=== PATIENT | female | born 1975 | race Caucasian/White ===

== ENCOUNTER 2025-01-10 16:03 | Observation (INO) | payer BC, SELFPAY ==
[2025-01-10] VITALS (18 sets, daily range): BP systolic 103–127; BP diastolic 51–73; PULSE 66–91; RESP 0–30; TEMP 36.7–37.5; O2SAT 93–99
--- NOTE | 2025-01-10 16:15 | DI.CT.S_ITS ---
PROCEDURE: CT HEAD/BRAIN WO CON INDICATIONS: AMS TECHNIQUE: Noncontrast 4.5 mm thick angled axial sections acquired from the foramen magnum to the vertex, with coronal and sagittal reformats. For radiation dose reduction, the following was used: automated exposure control, adjustment of mA and/or kV according to patient size. COMPARISON: None. FINDINGS: Image quality: Diagnostic. CSF spaces: Basal cisterns are patent. No extra-axial fluid collections. Ventricles are normal in size and shape. Brain: No midline shift. No intracranial masses or hemorrhage. Dailey-white matter interface is normal. Skull and face: Calvarium and visualized facial bones are intact, without suspicious lesions. Sinuses: Visualized sinuses and mastoids are clear. IMPRESSION: No acute intracranial abnormality. Dictated by: Gregory Garcia M.D. on 01/10/2025 at 16:48 Approved by: Gregory Garcia M.D. on 01/10/2025 at 16:49
--- NOTE | 2025-01-10 16:16 | DI.RAD.S_ITS ---
PROCEDURE: XR CHEST 1V INDICATIONS: chest pain TECHNIQUE: One view of the chest was acquired. COMPARISON: None. FINDINGS: Surgical changes and devices: None. Lungs and pleura: Lungs are clear. No pleural effusions or pneumothorax. Mediastinum: Mediastinal contours appear normal. Heart size is normal. Bones and chest wall: No suspicious bony lesions. Overlying soft tissues appear unremarkable. IMPRESSION: No acute pulmonary process. Dictated by: Brigette Pedro M.D. on 01/10/2025 at 16:49 Approved by: Brigette Pedro M.D. on 01/10/2025 at 16:49
--- NOTE | 2025-01-10 16:19 | EKG_ITS ---
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
[2025-01-10 16:29] LABS: Add Manual Diff / Slide Review NO; Basophils Absolute Auto 0 /uL (0-100); Basophils Percent Auto 0.4 % (0-2); Eosinophils Absolute Auto 200 /uL (0-450); Eosinophils Percent Auto 4.7 % (2-4); Hematocrit 48.2 % (36-46); Lymphocytes Absolute Auto 1100 /uL (1100-4500); Lymphocytes Percent Auto 22.7 % (25-40); Mean Corpuscular HGB Conc 33.2 % (30-36); Mean Corpuscular Hemoglobin 30.5 PG (26-34); Mean Corpuscular Volume 91.8 fL (80-100); Monocytes Absolute Auto 300 /uL (0-900); Monocytes Percent Auto 7.2 % (3-14); Neutrophils Absolute Auto 3100 /uL (1500-7000); Platelet Count 228 X10^3/uL (150-400); Red Blood Cell Count 5.25 X10^6/uL (4.0-5.2); Red Cell Distribution Width 14.4 % (11.6-14.8); White Blood Cell Count 4.7 X10^3/uL (4.5-11.0)
[2025-01-10 16:41] LABS: INR 0.9 (0.9-1.3); Prothrombin Time 10.5 SECONDS (9.4-12.5)
--- NOTE | 2025-01-10 16:41 | PC.NURSE ---
Pt arrived to ED via private vehicle with altered mental status and decreased LOC. 3 person assist from wheelchair to bed and pt responded verbally to sternal rub. Pt having intermittent episodes of altered level of consciousness. Pt able to answer questions appropriately. States that she has UTI and took macrobid rx that she had leftover from previous UTI. Pt's at bedside during triage and states that pt is prone to UTI but has no other significant medical hx.
[2025-01-10 16:44] LABS: PTT Partial Thromboplastin Tim 33 SECONDS (25.1-36.5)
[2025-01-10 16:47] LABS: Appearance Urine UA CLEAR; Bilirubin Urine UA NEGATIVE (NEGATIVE); Color Urine UA YELLOW; Glucose Urine UA NEGATIVE (Negative); Ketones Urine UA TRACE (NEGATIVE); Leukocyte Esterase Urine UA NEGATIVE (NEGATIVE); Nitrite Urine UA NEGATIVE (Negative); Occult Blood Urine UA NEGATIVE (Negative); Protein Urine UA NEGATIVE (Negative); Urobilinogen Urine UA 0.2 E.U./dL (0.2)
[2025-01-10 16:47] LABS: Alanine Aminotransferase 21 IU/L (<35); Albumin 4.6 g/dL (3.5-5.0); Albumin Globulin Ratio 1.5 (1.0-2.8); Alkaline Phosphatase 49 U/L (38-126); Aspartate Aminotransferase 26 IU/L (14-36); BUN Creatinine Ratio 10.5 (6-22); Bilirubin Total 0.4 mg/dL (0.2-1.3); Blood Urea Nitrogen 9 mg/dL (7-17); Calcium 9.8 mg/dL (8.4-10.2); Carbon Dioxide 24 mmol/L (22-32); Chloride 104 mmol/L (98-107); Creatine Kinase 39 U/L (30-135); Estimated Glomerular Filt Rate > 60 mL/min (>60); Glucose 81 mg/dL (70-100); HEMOLYSIS < 15 (0-50); Lipase 67 U/L (23-300); Magnesium 1.9 mg/dL (1.6-2.3); Potassium 4.1 mmol/L (3.4-5.1); Sodium 136 mmol/L (137-145); Total Protein 7.6 g/dL (6.3-8.2)
[2025-01-10 16:50] LABS: UR Morphine/Opiate cutoff 300 Negative (Negative); Ur Creatinine Normal (Normal); Ur Specific Gravity Normal (Normal); Urine Amphetamines Negative (Negative); Urine Barbiturates Negative (Negative); Urine Benzodiazepines Negative (Negative); Urine Cocaine Negative (Negative); Urine MDMA Negative (Negative); Urine Methadone Negative (Negative); Urine Methamphetamines Negative (Negative); Urine Oxycodone Negative (Negative); Urine Phencyclidine Negative (Negative); Urine Tetrahydrocannabinol Negative (Negative); Urine Tricyclic Antidepressant Negative (Negative); Urine pH Normal (Normal)
[2025-01-10 16:59] LABS: Ethanol (ETOH) < 10 mg/dL
[2025-01-10 16:59] LABS: NT-proBNP (BNP-Adult 18+) 181 pg/mL (<125); Troponin I < 0.012 ng/mL (0.01-0.034)
[2025-01-10 17:03] LABS: Bacteria Urine Many (>30); Culture Indicated Urine Cult Not Indicated; RBC Urine 0-1/HPF (0-5/HPF); Squamous Epithelial Cell Urine 10-30 /HPF (0-5/HPF); Urine Volume 10mL (spun); WBC Urine 0-1/HPF (0-5/HPF)
--- NOTE | 2025-01-10 18:07 | PC.NURSE ---
Addendum entered by Ludy Kaur R.N. 01/10/25 19:17: Rn to room to give meds. Pt asking her when he got home. Pt is a&Ox3 at this time and intermittently confused. Addendum entered by Ludy Kaur R.N. 01/10/25 18:30: Remains a&ox4. Original Note: Pt a&ox4. C/o headache and jaw pain.
--- NOTE | 2025-01-10 18:40 | ED.AMS ---
HPI - Altered Mental Status <Shonda Godfrey DO - Last Filed: 01/11/25 21:07> General Chief Complaint: Altered Mental Status Stated Complaint: LOC, UTI Time Seen by Provider: 01/10/25 18:07 History of Present Illness HPI narrative: Patient 49-year-old female history of thyroid, allergies presenting today with altered mental status. Has been is at bedside reports that he was away for the last 4 days on a trip. She called him 4 days ago and said that she might have a UTI and I. She does get UTIs. She is also complaining of a pretty severe headache. She needs to be carried in from the car diffusely weak all over. She was afebrile, can not remember when he came home can not remember how she got here. Overall diffusely weak and confused. Adamantly denies any drug use or alcohol use. Related Data Home Medications Medication Instructions Recorded Confirmed Semaglutide/B12 0.34 ml SUBCUT WEEKLY 01/11/25 01/11/25 allergen 1 tab sublingual DAILY 01/11/25 01/11/25 xt,mite,D.farinae-D.pteronyssinus 12 SQ-HDM sublingual tablet (Odactra) levothyroxine 88 mcg tablet 88 mcg PO DAILY 01/11/25 01/11/25 liothyronine 5 mcg tablet 5 mcg PO DAILY 01/11/25 01/11/25 naltrexone 1.5 mg capsule 2.5 mg PO BEDTIME 01/11/25 01/11/25 progesterone micronized 200 mg 200 mg PO BEDTIME 01/11/25 01/11/25 capsule Allergies Allergy/AdvReac Type Severity Reaction Status Date / Time ciprofloxacin [From Cipro] Allergy Unknown Verified 01/10/25 17:47 lidocaine Allergy Unknown Verified 01/10/25 17:47 morphine Allergy Unknown Verified 01/10/25 17:47 pregabalin [From Lyrica] Allergy Unknown Verified 01/10/25 17:47 Patient History <Shonda Godfrey DO - Last Filed: 01/11/25 21:07> Medical History (Updated 01/11/25 @ 17:05 by Juan Figueroa DO) Hypothyroidism Social History household members: spouse Smoking Status: Never smoker alcohol intake: never Smoking Status: Unknown if ever smoked Exam <Shonda Godfrey DO - Last Filed: 01/11/25 21:07> Initial Vital Signs Initial Vital Signs: Vital Signs Temperature 98.3 F 01/10/25 16:10 Pulse Rate 69 01/10/25 16:10 Respiratory Rate 18 01/10/25 16:10 Blood Pressure 127/73 01/10/25 16:10 Pulse Oximetry 98 01/10/25 16:10 Oxygen Delivery Method Room Air 01/10/25 16:10 GENERAL: Sleepy but arousable HEENT: Head atraumatic,EOMI, pupils reactive, face symmetric, [moist] mucous membranes NECK CARDIOVASCULAR: Regular rate and rhythm without murmurs, rubs or gallops. RESPIRATORY: Breath sounds equal bilaterally, no wheezes rales or rhonchi. ABDOMEN: Soft, nontender. Normoactive bowel sounds all 4 quadrants. No guarding or rebound. EXTREMITIES: Normal range of motion, no clubbing or edema. Neurovascularly intact NEUROLOGICAL: Alert and oriented x2. No facial droop no slurring of speech diffusely weak in all extremities all extremities drift to gurney SKIN: Warm, dry, no laceration, no petechiae, no rashes or lesions. <Benitez Hendrix MD - Last Filed: 01/11/25 20:37> Initial Vital Signs Initial Vital Signs: Vital Signs Temperature 98.3 F 01/10/25 16:10 Pulse Rate 69 01/10/25 16:10 Respiratory Rate 18 01/10/25 16:10 Blood Pressure 127/73 01/10/25 16:10 Pulse Oximetry 98 01/10/25 16:10 Oxygen Delivery Method Room Air 01/10/25 16:10 Procedures <Shonda Godfrey DO - Last Filed: 01/11/25 21:07> Lumbar Puncture Patient Position: right lateral decubitus (and up right) Skin Prep: 0.5% Chlorhexidine/Alcohol Local Anesthetic: lidocaine 1% Amount of anesthesia used (mL): 15 Spinal Needle Gauge: 22G Interspace Used: L4-L5 Complications: Need to have other Practitioner Attempt and unable to obtain CSF Course <Shonda Godfrey DO - Last Filed: 01/11/25 21:07> Orders Ordered: Acetaminophen (Acetaminophen 325 Mg Tablet) 650 mg PO Q6H PRN PRN Reason: Fever/Mild Pain (1-3) Enoxaparin Sodium (Enoxaparin 40 Mg/0.4 Ml Syringe) 40 mg SUBCUT DAILY COUNTS INCLUDE 234 BEDS AT THE [facility] Hydromorphone HCl (Hydromorphone 1 Mg Inj) 1 mg IV Q4H PRN PRN Reason: Pain, Moderate (4-6) Last Admin: 01/11/25 19:04 Dose: 1 mg Documented By: LDV Sodium Chloride (Normal Saline 0.9%) 1,000 mls @ 100 mls/hr IV CONT FANTA Last Admin: 01/11/25 12:00 Dose: 100 mls/hr Documented By: LDV Ceftriaxone Sodium 1,000 mg/ (Sodium Chloride) 100 mls @ 200 mls/hr IV Q24H COUNTS INCLUDE 234 BEDS AT THE [facility] Stop: 01/16/25 16:59 Last Admin: 01/11/25 18:01 Dose: 200 mls/hr Documented By: SG Azithromycin 500 mg/ Dextrose 250 mls @ 250 mls/hr IV Q24H FANTA Stop: 01/14/25 16:59 Last Admin: 01/11/25 18:45 Dose: 250 mls/hr Documented By: LDV Naloxone HCl (Naloxone 0.4 Mg/Ml Vial) 0.2 mg IV Q2MIN PRN PRN Reason: Opiate Reversal Stored In Pharmacy 0 each PO PRN PRN PRN Reason: . Discontinued Medications Hydromorphone HCl (Hydromorphone 1 Mg Inj) 1 mg IV NOW ONE Stop: 01/11/25 03:07 Last Admin: 01/11/25 03:12 Dose: 1 mg Documented By: ELIO Hydromorphone HCl (Hydromorphone 0.5 Mg Inj) 0.5 mg IV NOW ONE Stop: 01/11/25 05:33 Last Admin: 01/11/25 06:03 Dose: 0.5 mg Documented By: ELIO Hydromorphone HCl (Hydromorphone 0.5 Mg Inj) 0.5 mg IV NOW ONE Stop: 01/11/25 08:26 Last Admin: 01/11/25 08:49 Dose: 0.5 mg Documented By: KACI Sodium Chloride (Normal Saline 0.9%) 1,000 mls @ 1,000 mls/hr IV BOLUS ONE Stop: 01/10/25 19:50 Last Infusion: 01/10/25 20:00 Dose: Infused Documented By: Admin: 01/10/25 19:00 Dose: 1,000 mls/hr Documented By: CHELO Sodium Chloride (Normal Saline 0.9%) 1,000 mls @ 1,000 mls/hr IV BOLUS ONE Stop: 01/11/25 06:31 Last Infusion: 01/11/25 08:23 Dose: Infused Documented By: Admin: 01/11/25 06:02 Dose: 1,000 mls/hr Documented By: ELIO Acetaminophen (Ofirmev) 1,000 mg in 100 mls @ 400 mls/hr IV NOW ONE Stop: 01/11/25 05:46 Last Infusion: 01/11/25 06:42 Dose: Infused Documented By: Admin: 01/11/25 06:03 Dose: 400 mls/hr Documented By: ELIO Ketorolac Tromethamine (Ketorolac 30 Mg/Ml Vial) 15 mg IV NOW ONE Stop: 01/10/25 18:52 Last Admin: 01/10/25 19:00 Dose: 15 mg Documented By: CHELO Ondansetron HCl (Ondansetron 4 Mg/2 Ml Inj) 4 mg IV NOW ONE Stop: 01/11/25 04:00 Last Admin: 01/11/25 04:04 Dose: 4 mg Documented By: LORETTA Ondansetron HCl (Ondansetron 4 Mg/2 Ml Inj) 4 mg IV NOW ONE Stop: 01/11/25 10:17 Last Admin: 01/11/25 10:25 Dose: 4 mg Documented By: CL Sumatriptan Succinate (Sumatriptan 6 Mg/0.5 Ml Vial) 6 mg SUBCUT NOW ONE Stop: 01/11/25 16:50 Last Admin: 01/11/25 17:55 Dose: 6 mg Documented By: JOSE Vital Signs Vital signs: Vital Signs - 8 hr 01/11/25 03:30 01/11/25 04:00 01/11/25 04:30 Temperature 99.0 F Pulse Rate 89 83 70 Respiratory Rate 22 13 17 Blood Pressure Pulse Oximetry 96 98 93 01/11/25 04:54 01/11/25 05:02 01/11/25 05:02 Temperature Pulse Rate 72 65 Respiratory Rate 23 21 Blood Pressure 121/66 Pulse Oximetry 92 93 01/11/25 05:30 01/11/25 05:30 01/11/25 06:00 Temperature Pulse Rate 74 68 Respiratory Rate 16 17 Blood Pressure 107/67 Pulse Oximetry 97 94 01/11/25 06:00 01/11/25 07:00 01/11/25 07:00 Temperature Pulse Rate 78 Respiratory Rate 17 Blood Pressure 93/53 L 99/52 L Pulse Oximetry 95 01/11/25 07:30 01/11/25 07:30 01/11/25 08:00 Temperature Pulse Rate 79 71 Respiratory Rate 17 14 Blood Pressure 100/59 L Pulse Oximetry 94 95 01/11/25 08:00 01/11/25 08:30 01/11/25 08:30 Temperature Pulse Rate 81 Respiratory Rate 19 Blood Pressure 102/58 L 107/62 Pulse Oximetry 91 01/11/25 09:00 01/11/25 09:16 01/11/25 09:30 Temperature Pulse Rate 70 95 H Respiratory Rate 20 13 Blood Pressure 102/61 Pulse Oximetry 98 97 01/11/25 09:30 01/11/25 09:45 01/11/25 09:45 Temperature Pulse Rate 78 72 Respiratory Rate 16 17 Blood Pressure 104/57 L Pulse Oximetry 93 92 01/11/25 10:00 01/11/25 10:00 Temperature Pulse Rate 69 Respiratory Rate 17 Blood Pressure 103/56 L Pulse Oximetry 93 <Benitez Hendrix MD - Last Filed: 01/11/25 20:37> Orders Ordered: Acetaminophen (Acetaminophen 325 Mg Tablet) 650 mg PO Q6H PRN PRN Reason: Fever/Mild Pain (1-3) Enoxaparin Sodium (Enoxaparin 40 Mg/0.4 Ml Syringe) 40 mg SUBCUT DAILY COUNTS INCLUDE 234 BEDS AT THE [facility] Hydromorphone HCl (Hydromorphone 1 Mg Inj) 1 mg IV Q4H PRN PRN Reason: Pain, Moderate (4-6) Last Admin: 01/11/25 19:04 Dose: 1 mg Documented By: LDV Sodium Chloride (Normal Saline 0.9%) 1,000 mls @ 100 mls/hr IV CONT FANTA Last Admin: 01/11/25 12:00 Dose: 100 mls/hr Documented By: LDV Ceftriaxone Sodium 1,000 mg/ (Sodium Chloride) 100 mls @ 200 mls/hr IV Q24H FANTA Stop: 01/16/25 16:59 Last Admin: 01/11/25 18:01 Dose: 200 mls/hr Documented By: JOSE Azithromycin 500 mg/ Dextrose 250 mls @ 250 mls/hr IV Q24H FANTA Stop: 01/14/25 16:59 Last Admin: 01/11/25 18:45 Dose: 250 mls/hr Documented By: LDV Naloxone HCl (Naloxone 0.4 Mg/Ml Vial) 0.2 mg IV Q2MIN PRN PRN Reason: Opiate Reversal Stored In Pharmacy 0 each PO PRN PRN PRN Reason: . Discontinued Medications Hydromorphone HCl (Hydromorphone 1 Mg Inj) 1 mg IV NOW ONE Stop: 01/11/25 03:07 Last Admin: 01/11/25 03:12 Dose: 1 mg Documented By: ELIO Hydromorphone HCl (Hydromorphone 0.5 Mg Inj) 0.5 mg IV NOW ONE Stop: 01/11/25 05:33 Last Admin: 01/11/25 06:03 Dose: 0.5 mg Documented By: ELIO Hydromorphone HCl (Hydromorphone 0.5 Mg Inj) 0.5 mg IV NOW ONE Stop: 01/11/25 08:26 Last Admin: 01/11/25 08:49 Dose: 0.5 mg Documented By: KACI Sodium Chloride (Normal Saline 0.9%) 1,000 mls @ 1,000 mls/hr IV BOLUS ONE Stop: 01/10/25 19:50 Last Infusion: 01/10/25 20:00 Dose: Infused Documented By: Admin: 01/10/25 19:00 Dose: 1,000 mls/hr Documented By: CHELO Sodium Chloride (Normal Saline 0.9%) 1,000 mls @ 1,000 mls/hr IV BOLUS ONE Stop: 01/11/25 06:31 Last Infusion: 01/11/25 08:23 Dose: Infused Documented By: Admin: 01/11/25 06:02 Dose: 1,000 mls/hr Documented By: ELIO Acetaminophen (Ofirmev) 1,000 mg in 100 mls @ 400 mls/hr IV NOW ONE Stop: 01/11/25 05:46 Last Infusion: 01/11/25 06:42 Dose: Infused Documented By: Admin: 01/11/25 06:03 Dose: 400 mls/hr Documented By: ELIO Ketorolac Tromethamine (Ketorolac 30 Mg/Ml Vial) 15 mg IV NOW ONE Stop: 01/10/25 18:52 Last Admin: 01/10/25 19:00 Dose: 15 mg Documented By: CHELO Ondansetron HCl (Ondansetron 4 Mg/2 Ml Inj) 4 mg IV NOW ONE Stop: 01/11/25 04:00 Last Admin: 01/11/25 04:04 Dose: 4 mg Documented By: LORETTA Ondansetron HCl (Ondansetron 4 Mg/2 Ml Inj) 4 mg IV NOW ONE Stop: 01/11/25 10:17 Last Admin: 01/11/25 10:25 Dose: 4 mg Documented By: CL Sumatriptan Succinate (Sumatriptan 6 Mg/0.5 Ml Vial) 6 mg SUBCUT NOW ONE Stop: 01/11/25 16:50 Last Admin: 01/11/25 17:55 Dose: 6 mg Documented By: SG Vital Signs Vital signs: Vital Signs - 8 hr 01/11/25 03:30 01/11/25 04:00 01/11/25 04:30 Temperature 99.0 F Pulse Rate 89 83 70 Respiratory Rate 22 13 17 Blood Pressure Pulse Oximetry 96 98 93 01/11/25 04:54 01/11/25 05:02 01/11/25 05:02 Temperature Pulse Rate 72 65 Respiratory Rate 23 21 Blood Pressure 121/66 Pulse Oximetry 92 93 01/11/25 05:30 01/11/25 05:30 01/11/25 06:00 Temperature Pulse Rate 74 68 Respiratory Rate 16 17 Blood Pressure 107/67 Pulse Oximetry 97 94 01/11/25 06:00 01/11/25 07:00 01/11/25 07:00 Temperature Pulse Rate 78 Respiratory Rate 17 Blood Pressure 93/53 L 99/52 L Pulse Oximetry 95 01/11/25 07:30 01/11/25 07:30 01/11/25 08:00 Temperature Pulse Rate 79 71 Respiratory Rate 17 14 Blood Pressure 100/59 L Pulse Oximetry 94 95 01/11/25 08:00 01/11/25 08:30 01/11/25 08:30 Temperature Pulse Rate 81 Respiratory Rate 19 Blood Pressure 102/58 L 107/62 Pulse Oximetry 91 01/11/25 09:00 01/11/25 09:16 01/11/25 09:30 Temperature Pulse Rate 70 95 H Respiratory Rate 20 13 Blood Pressure 102/61 Pulse Oximetry 98 97 01/11/25 09:30 01/11/25 09:45 01/11/25 09:45 Temperature Pulse Rate 78 72 Respiratory Rate 16 17 Blood Pressure 104/57 L Pulse Oximetry 93 92 01/11/25 10:00 01/11/25 10:00 Temperature Pulse Rate 69 Respiratory Rate 17 Blood Pressure 103/56 L Pulse Oximetry 93 MDM - Altered Mental Status <Shonda Godfrey, DO - Last Filed: 01/11/25 21:07> Lab Data 01/11/25 11:45 01/11/25 11:45 Labs: Lab Results 01/10/25 01/10/25 01/10/25 Range/Units 16:15 16:31 16:31 WBC 4.7 (4.5-11.0) X10^3/uL RBC 5.25 H (4.0-5.2) X10^6/uL Hgb 16.0 (12.0-16.0) g/dL Hct 48.2 H (36-46) % MCV 91.8 (80-100) fL MCH 30.5 (26-34) PG MCHC 33.2 (30-36) % RDW 14.4 (11.6-14.8) % Plt Count 228 (150-400) X10^3/uL Neut % (Auto) 65.0 (50-75) % Lymph % (Auto) 22.7 L (25-40) % [place] % (Auto) 7.2 (3-14) % Eos % (Auto) 4.7 H (2-4) % Baso % (Auto) 0.4 (0-2) % Neut # (Auto) 3100 (0116-6515) /uL Lymph # (Auto) 1100 (9641-1630) /uL [place] # (Auto) 300 (0-900) /uL Eos # (Auto) 200 (0-450) /uL Baso # (Auto) 0 (0-100) /uL PT 10.5 (9.4-12.5) SECONDS INR 0.9 (0.9-1.3) APTT 33 (25.1-36.5) SECONDS Sodium 136 L (137-145) mmol/L Potassium 4.1 (3.4-5.1) mmol/L Chloride 104 (98-107) mmol/L Carbon Dioxide 24 (22-32) mmol/L BUN 9 (7-17) mg/dL Creatinine 0.86 (0.52-1.04) mg/dL Estimated GFR > 60 (>60) mL/min BUN/Creatinine Ratio 10.5 (6-22) Glucose 81 (70-100) mg/dL Lactate 1.0 (0.7-2.1) mmol/L Calcium 9.8 (8.4-10.2) mg/dL Magnesium 1.9 (1.6-2.3) mg/dL Total Bilirubin 0.4 (0.2-1.3) mg/dL AST 26 (14-36) IU/L ALT 21 (<35) IU/L Alkaline Phosphatase 49 (38-126) U/L Total Creatine Kinase 39 (30-135) U/L Troponin I < 0.012 (0.01-0.034) ng/mL NT-Pro-B Natriuret Pep 181 H (<125) pg/mL Total Protein 7.6 (6.3-8.2) g/dL Albumin 4.6 (3.5-5.0) g/dL Globulin 3.0 (1.7-4.1) g/dL Albumin/Globulin Ratio 1.5 (1.0-2.8) Lipase 67 (23-300) U/L TSH 1.03 (0.47-4.68) uIU/mL Urine Color Yellow Urine Appearance Clear Urine pH 7.0 Normal (4.5-8.0) Ur Specific [place] 1.010 (1.000-1.035) Urine Protein Negative (Negative) Urine Glucose (UA) Negative (Negative) g/dL Urine Ketones Trace H (NEGATIVE) Urine Occult Blood Negative (Negative) Urine Nitrate Negative (Negative) Urine Bilirubin Negative (NEGATIVE) Urine Urobilinogen 0.2 (0.2) E.U./dL Ur Leukocyte Esterase Negative (NEGATIVE) Urine RBC 0-1/hpf (0-5/HPF) Urine WBC 0-1/hpf (0-5/HPF) Ur Squamous Epith Cells 10-30 /hpf H (0-5/HPF) Urine Bacteria Many (>30) H (None) Ur Culture Indicated? Cult not indicated Vol Urine Centrifuged 10ml (spun) CSF Tube Number CSF Volume CSF Appearance (Clear) CSF Color (Colorless) CSF WBC (0-5) MONO/uL CSF RBC RBC /uL CSF Mononuclear WBCs CSF Polynuclear WBCs CSF Glucose (40-70) mg/dL CSF Total Protein (12-60) mg/dL CSF C.neoform/gat PCR (Not Detect) CSF CMV DNA (PCR) (Not Detect) CSF Enterovirus (PCR) (Not Detect) CSF E. coli (PCR) (Not Detect) CSF H. influenzae (PCR) (Not Detect) CSF HSV I (PCR) (Not Detect) CSF HSV II (PCR) (Not Detect) CSF HHV 6 (PCR) (Not Detect) CSF L.monocytogenes PCR (Not Detect) CSF N. meningitidis PCR (Not Detect) CSF Parechovirus (PCR) (Not Detect) CSF S. agalactiae (PCR) (Not Detect) CSF S. pneumoniae (PCR) (Not Detect) CSF VZV (PCR) (Not Detecte) U Opiates 300ng/mL cut Negative (Negative) Ur Oxycodone Screen Negative (Negative) Urine Methadone Screen Negative (Negative) Ur Barbiturates Screen Negative (Negative) U Tricyclic Antidepress Negative (Negative) Ur Phencyclidine Scrn Negative (Negative) Ur Amphetamines Screen Negative (Negative) U Methamphetamines Scrn Negative (Negative) Ur MDMA Scrn (Ecstasy) Negative (Negative) U Benzodiazepines Scrn Negative (Negative) Urine Cocaine Screen Negative (Negative) U Marijuana (THC) Screen Negative (Negative) Urine Specific [place] Normal (Normal) Ethyl Alcohol ( - 10) mg/dL Ur Creatinine Normal (Normal) SARS-CoV-2 (PCR) (Negative) Influenza A (RT-PCR) (NEGATIVE) Influenza B (RT-PCR) (NEGATIVE) RSV (PCR) (Negative) 01/10/25 01/10/25 01/11/25 Range/Units 16:32 18:13 03:36 WBC (4.5-11.0) X10^3/uL RBC (4.0-5.2) X10^6/uL Hgb (12.0-16.0) g/dL Hct (36-46) % MCV (80-100) fL MCH (26-34) PG MCHC (30-36) % RDW (11.6-14.8) % Plt Count (150-400) X10^3/uL Neut % (Auto) (50-75) % Lymph % (Auto) (25-40) % [place] % (Auto) (3-14) % Eos % (Auto) (2-4) % Baso % (Auto) (0-2) % Neut # (Auto) (7576-7575) /uL Lymph # (Auto) (0515-3240) /uL [place] # (Auto) (0-900) /uL Eos # (Auto) (0-450) /uL Baso # (Auto) (0-100) /uL PT (9.4-12.5) SECONDS INR (0.9-1.3) APTT (25.1-36.5) SECONDS Sodium (137-145) mmol/L Potassium (3.4-5.1) mmol/L Chloride (98-107) mmol/L Carbon Dioxide (22-32) mmol/L BUN (7-17) mg/dL Creatinine (0.52-1.04) mg/dL Estimated GFR (>60) mL/min BUN/Creatinine Ratio (6-22) Glucose (70-100) mg/dL Lactate (0.7-2.1) mmol/L Calcium (8.4-10.2) mg/dL Magnesium (1.6-2.3) mg/dL Total Bilirubin (0.2-1.3) mg/dL AST (14-36) IU/L ALT (<35) IU/L Alkaline Phosphatase (38-126) U/L Total Creatine Kinase (30-135) U/L Troponin I (0.01-0.034) ng/mL NT-Pro-B Natriuret Pep (<125) pg/mL Total Protein (6.3-8.2) g/dL Albumin (3.5-5.0) g/dL Globulin (1.7-4.1) g/dL Albumin/Globulin Ratio (1.0-2.8) Lipase (23-300) U/L TSH (0.47-4.68) uIU/mL Urine Color Yellow Urine Appearance Clear Urine pH 6.0 (4.5-8.0) Ur Specific [place] 1.010 (1.000-1.035) Urine Protein Negative (Negative) Urine Glucose (UA) Negative (Negative) g/dL Urine Ketones 1+ H (NEGATIVE) Urine Occult Blood Negative (Negative) Urine Nitrate Negative (Negative) Urine Bilirubin Negative (NEGATIVE) Urine Urobilinogen 0.2 (0.2) E.U./dL Ur Leukocyte Esterase Negative (NEGATIVE) Urine RBC None seen (0-5/HPF) Urine WBC None seen (0-5/HPF) Ur Squamous Epith Cells None seen D (0-5/HPF) Urine Bacteria None seen (None) Ur Culture Indicated? Cult not indicated Vol Urine Centrifuged 10ml (spun) CSF Tube Number CSF Volume CSF Appearance (Clear) CSF Color (Colorless) CSF WBC (0-5) MONO/uL CSF RBC RBC /uL CSF Mononuclear WBCs CSF Polynuclear WBCs CSF Glucose (40-70) mg/dL CSF Total Protein (12-60) mg/dL CSF C.neoform/gat PCR (Not Detect) CSF CMV DNA (PCR) (Not Detect) CSF Enterovirus (PCR) (Not Detect) CSF E. coli (PCR) (Not Detect) CSF H. influenzae (PCR) (Not Detect) CSF HSV I (PCR) (Not Detect) CSF HSV II (PCR) (Not Detect) CSF HHV 6 (PCR) (Not Detect) CSF L.monocytogenes PCR (Not Detect) CSF N. meningitidis PCR (Not Detect) CSF Parechovirus (PCR) (Not Detect) CSF S. agalactiae (PCR) (Not Detect) CSF S. pneumoniae (PCR) (Not Detect) CSF VZV (PCR) (Not Detecte) U Opiates 300ng/mL cut (Negative) Ur Oxycodone Screen (Negative) Urine Methadone Screen (Negative) Ur Barbiturates Screen (Negative) U Tricyclic Antidepress (Negative) Ur Phencyclidine Scrn (Negative) Ur Amphetamines Screen (Negative) U Methamphetamines Scrn (Negative) Ur MDMA Scrn (Ecstasy) (Negative) U Benzodiazepines Scrn (Negative) Urine Cocaine Screen (Negative) U Marijuana (THC) Screen (Negative) Urine Specific [place] (Normal) Ethyl Alcohol < 10 ( - 10) mg/dL Ur Creatinine (Normal) SARS-CoV-2 (PCR) Negative (Negative) Influenza A (RT-PCR) Flu a negative (NEGATIVE) Influenza B (RT-PCR) Flu b negative (NEGATIVE) RSV (PCR) Negative (Negative) 01/11/25 Range/Units 09:15 WBC (4.5-11.0) X10^3/uL RBC (4.0-5.2) X10^6/uL Hgb (12.0-16.0) g/dL Hct (36-46) % MCV (80-100) fL MCH (26-34) PG MCHC (30-36) % RDW (11.6-14.8) % Plt Count (150-400) X10^3/uL Neut % (Auto) (50-75) % Lymph % (Auto) (25-40) % [place] % (Auto) (3-14) % Eos % (Auto) (2-4) % Baso % (Auto) (0-2) % Neut # (Auto) (6315-3469) /uL Lymph # (Auto) (6277-9466) /uL [place] # (Auto) (0-900) /uL Eos # (Auto) (0-450) /uL Baso # (Auto) (0-100) /uL PT (9.4-12.5) SECONDS INR (0.9-1.3) APTT (25.1-36.5) SECONDS Sodium (137-145) mmol/L Potassium (3.4-5.1) mmol/L Chloride (98-107) mmol/L Carbon Dioxide (22-32) mmol/L BUN (7-17) mg/dL Creatinine (0.52-1.04) mg/dL Estimated GFR (>60) mL/min BUN/Creatinine Ratio (6-22) Glucose (70-100) mg/dL Lactate (0.7-2.1) mmol/L Calcium (8.4-10.2) mg/dL Magnesium (1.6-2.3) mg/dL Total Bilirubin (0.2-1.3) mg/dL AST (14-36) IU/L ALT (<35) IU/L Alkaline Phosphatase (38-126) U/L Total Creatine Kinase (30-135) U/L Troponin I (0.01-0.034) ng/mL NT-Pro-B Natriuret Pep (<125) pg/mL Total Protein (6.3-8.2) g/dL Albumin (3.5-5.0) g/dL Globulin (1.7-4.1) g/dL Albumin/Globulin Ratio (1.0-2.8) Lipase (23-300) U/L TSH (0.47-4.68) uIU/mL Urine Color Urine Appearance Urine pH (4.5-8.0) Ur Specific [place] (1.000-1.035) Urine Protein (Negative) Urine Glucose (UA) (Negative) g/dL Urine Ketones (NEGATIVE) Urine Occult Blood (Negative) Urine Nitrate (Negative) Urine Bilirubin (NEGATIVE) Urine Urobilinogen (0.2) E.U./dL Ur Leukocyte Esterase (NEGATIVE) Urine RBC (0-5/HPF) Urine WBC (0-5/HPF) Ur Squamous Epith Cells (0-5/HPF) Urine Bacteria (None) Ur Culture Indicated? Vol Urine Centrifuged CSF Tube Number 3 CSF Volume 2.0 ml CSF Appearance Clear (Clear) CSF Color Colorless (Colorless) CSF WBC 1.7 (0-5) MONO/uL CSF RBC 3 RBC /uL CSF Mononuclear WBCs Not Reportable CSF Polynuclear WBCs Not Reportable CSF Glucose 44 (40-70) mg/dL CSF Total Protein 30 (12-60) mg/dL CSF C.neoform/gat PCR Not detected (Not Detect) CSF CMV DNA (PCR) Not detected (Not Detect) CSF Enterovirus (PCR) Not detected (Not Detect) CSF E. coli (PCR) Not detected (Not Detect) CSF H. influenzae (PCR) Not detected (Not Detect) CSF HSV I (PCR) Not detected (Not Detect) CSF HSV II (PCR) Not detected (Not Detect) CSF HHV 6 (PCR) Not detected (Not Detect) CSF L.monocytogenes PCR Not detected (Not Detect) CSF N. meningitidis PCR Not detected (Not Detect) CSF Parechovirus (PCR) Not detected (Not Detect) CSF S. agalactiae (PCR) Not detected (Not Detect) CSF S. pneumoniae (PCR) Not detected (Not Detect) CSF VZV (PCR) Not detected (Not Detecte) U Opiates 300ng/mL cut (Negative) Ur Oxycodone Screen (Negative) Urine Methadone Screen (Negative) Ur Barbiturates Screen (Negative) U Tricyclic Antidepress (Negative) Ur Phencyclidine Scrn (Negative) Ur Amphetamines Screen (Negative) U Methamphetamines Scrn (Negative) Ur MDMA Scrn (Ecstasy) (Negative) U Benzodiazepines Scrn (Negative) Urine Cocaine Screen (Negative) U Marijuana (THC) Screen (Negative) Urine Specific [place] (Normal) Ethyl Alcohol ( - 10) mg/dL Ur Creatinine (Normal) SARS-CoV-2 (PCR) (Negative) Influenza A (RT-PCR) (NEGATIVE) Influenza B (RT-PCR) (NEGATIVE) RSV (PCR) (Negative) Point of Care Testing Glucose POC [address] scan - head: Radiologist's Impression: PROCEDURE: CT HEAD/BRAIN WO CON INDICATIONS: AMS TECHNIQUE: Noncontrast 4.5 mm thick angled axial sections acquired from the foramen magnum to the vertex, with coronal and sagittal reformats. For radiation dose reduction, the following was used: automated exposure control, adjustment of mA and/or kV according to patient size. COMPARISON: None. FINDINGS: Image quality: Diagnostic. CSF spaces: Basal cisterns are patent. No extra-axial fluid collections. Ventricles are normal in size and shape. Brain: No midline shift. No intracranial masses or hemorrhage. Dailey-white matter interface is normal. Skull and face: Calvarium and visualized facial bones are intact, without suspicious lesions. Sinuses: Visualized sinuses and mastoids are clear. IMPRESSION: No acute intracranial abnormality. Dictated by: Gregory Garcia M.D. on 01/10/2025 at 16:48 Chest x-ray: Radiologist's Impression: PROCEDURE: XR CHEST 1V INDICATIONS: chest pain TECHNIQUE: One view of the chest was acquired. COMPARISON: None. FINDINGS: Surgical changes and devices: None. Lungs and pleura: Lungs are clear. No pleural effusions or pneumothorax. Mediastinum: Mediastinal contours appear normal. Heart size is normal. Bones and chest wall: No suspicious bony lesions. Overlying soft tissues appear unremarkable. IMPRESSION: No acute pulmonary process. Dictated by: Brigette Pedro M.D. on 01/10/2025 at 16:49 ECG Data Attestation: I personally reviewed and interpreted this ECG as follows: Interpretation: Normal sinus rhythm rate 63 TX interval 104 QRS [address] changes no T-wave inversions MDM Narrative Medical decision making narrative: [facility] CC: Altered mental status Complicating co-morbidities: Hypothyroid Corroborating data: and son Medical records reviewed: none Differential considered: Sepsis intracranial abnormality Toxicology myxedema coma Exam documented above, pertinent findings include: Confused diffusely weak 49-year-old female Lab Test results independently reviewed as above. Pertinent findings: WBC 4.7 Lactate 1.0 CMP show stable and normal electrolytes creatinine 0.8 potassium 4.1, glucose 81 Bilirubin liver enzymes within normal limits Troponin negative BNP 181 TSH 1.0 Urinalysis initially showed some squamous repeat catheterized urinalysis no evidence of UTI Drug screen negative Independently reviewed EKG as above Imaging studies independently reviewed: Head CT no intracranial abnormalities Chest x-ray no acute cardiopulmonary process Consultations: General surgery, Hospitalist, anesthesia Discussion: Patient 49-year-old female who presents today by POV but needs to be carried out from the car. Initially thought possible Toxicology required full assistance. Upon my initial evaluation she is diffusely weak but awake alert mildly confused. Blood work is overall reassuring she has no leukocytosis she has a normal lactate electrolytes are stable she has negative troponin catheterized urine is negative for any evidence UTI. She was complaining of significant head neck pain. There was initial concern for possible meningitis or least a viral meningitis. Lumbar puncture was attempted a couple of different times did not get any CSF fluid. Patient did her best to tolerate the procedure but it was quite painful for her. She became more awake alert while in the emergency department. Patient has a catheter in place initially needed urinalysis quickly. Patient states that she frequently has urinary retention after catheters. Recommended that she leave the catheter in place for couple of days however she does not want it in place and would like it removed even if she has to come back. Lumbar puncture unsuccessful, however her mental status seems to be improving she still mildly confused but she is afebrile here. Headache and neck pain have improved as well. After ambulation trial headache and nausea worsened. Possible herpes encephalitis. I have called anesthesia for 2nd attempt of LP. Dr. Figueroa, updated symptoms test results request LP prior to admission Patient signed out to Dr. Hendrix 01/11/2025, 0700, Simeon. Sign-out from Dr. Godfrey. 49-year-old female with reported recent urinary tract infection, had headache and fever, screening labs unremarkable, no leukocytosis, normal lactate, urinalysis negative, CT head no acute changes, attempted lumbar puncture on successful, case discussed with hospitalist who would like further attempts. Consider CT-guided LP but no radiology in-house today, could transfer to [facility] if needed. Query anesthesia, they will be coming to the emergency department to attempt lumbar puncture. Assumed care. Anesthesia was successful in obtaining CSF which appeared clear. CSF studies requested, cell count/diff, Gram stain culture, glucose, protein. CSF meningitis panel also ordered. CSF WBC 1.7, RBC 3, glucose 44, protein 30. CSF culture pending. CSF meningitis panel results are still pending. Patient is still symptomatic, consider admission, consult hospitalist Dr. Henry Figueroa reviewed chart, accepts patient for admission to observation <Benitez Hendrix MD - Last Filed: 01/11/25 20:37> Lab Data Labs: Lab Results 01/10/25 01/10/25 01/10/25 Range/Units 16:15 16:31 16:31 WBC 4.7 (4.5-11.0) X10^3/uL RBC 5.25 H (4.0-5.2) X10^6/uL Hgb 16.0 (12.0-16.0) g/dL Hct 48.2 H (36-46) % MCV 91.8 (80-100) fL MCH 30.5 (26-34) PG MCHC 33.2 (30-36) % RDW 14.4 (11.6-14.8) % Plt Count 228 (150-400) X10^3/uL Neut % (Auto) 65.0 (50-75) % Lymph % (Auto) 22.7 L (25-40) % [place] % (Auto) 7.2 (3-14) % Eos % (Auto) 4.7 H (2-4) % Baso % (Auto) 0.4 (0-2) % Neut # (Auto) 3100 (4718-2229) /uL Lymph # (Auto) 1100 (5480-9321) /uL [place] # (Auto) 300 (0-900) /uL Eos # (Auto) 200 (0-450) /uL Baso # (Auto) 0 (0-100) /uL PT 10.5 (9.4-12.5) SECONDS INR 0.9 (0.9-1.3) APTT 33 (25.1-36.5) SECONDS Sodium 136 L (137-145) mmol/L Potassium 4.1 (3.4-5.1) mmol/L Chloride 104 (98-107) mmol/L Carbon Dioxide 24 (22-32) mmol/L BUN 9 (7-17) mg/dL Creatinine 0.86 (0.52-1.04) mg/dL Estimated GFR > 60 (>60) mL/min BUN/Creatinine Ratio 10.5 (6-22) Glucose 81 (70-100) mg/dL Lactate 1.0 (0.7-2.1) mmol/L Calcium 9.8 (8.4-10.2) mg/dL Magnesium 1.9 (1.6-2.3) mg/dL Total Bilirubin 0.4 (0.2-1.3) mg/dL AST 26 (14-36) IU/L ALT 21 (<35) IU/L Alkaline Phosphatase 49 (38-126) U/L Total Creatine Kinase 39 (30-135) U/L Troponin I < 0.012 (0.01-0.034) ng/mL NT-Pro-B Natriuret Pep 181 H (<125) pg/mL Total Protein 7.6 (6.3-8.2) g/dL Albumin 4.6 (3.5-5.0) g/dL Globulin 3.0 (1.7-4.1) g/dL Albumin/Globulin Ratio 1.5 (1.0-2.8) Lipase 67 (23-300) U/L TSH 1.03 (0.47-4.68) uIU/mL Urine Color Yellow Urine Appearance Clear Urine pH 7.0 Normal (4.5-8.0) Ur Specific [place] 1.010 (1.000-1.035) Urine Protein Negative (Negative) Urine Glucose (UA) Negative (Negative) g/dL Urine Ketones Trace H (NEGATIVE) Urine Occult Blood Negative (Negative) Urine Nitrate Negative (Negative) Urine Bilirubin Negative (NEGATIVE) Urine Urobilinogen 0.2 (0.2) E.U./dL Ur Leukocyte Esterase Negative (NEGATIVE) Urine RBC 0-1/hpf (0-5/HPF) Urine WBC 0-1/hpf (0-5/HPF) Ur Squamous Epith Cells 10-30 /hpf H (0-5/HPF) Urine Bacteria Many (>30) H (None) Ur Culture Indicated? Cult not indicated Vol Urine Centrifuged 10ml (spun) CSF Tube Number CSF Volume CSF Appearance (Clear) CSF Color (Colorless) CSF WBC (0-5) MONO/uL CSF RBC RBC /uL CSF Mononuclear WBCs CSF Polynuclear WBCs CSF Glucose (40-70) mg/dL CSF Total Protein (12-60) mg/dL CSF C.neoform/gat PCR (Not Detect) CSF CMV DNA (PCR) (Not Detect) CSF Enterovirus (PCR) (Not Detect) CSF E. coli (PCR) (Not Detect) CSF H. influenzae (PCR) (Not Detect) CSF HSV I (PCR) (Not Detect) CSF HSV II (PCR) (Not Detect) CSF HHV 6 (PCR) (Not Detect) CSF L.monocytogenes PCR (Not Detect) CSF N. meningitidis PCR (Not Detect) CSF Parechovirus (PCR) (Not Detect) CSF S. agalactiae (PCR) (Not Detect) CSF S. pneumoniae (PCR) (Not Detect) CSF VZV (PCR) (Not Detecte) U Opiates 300ng/mL cut Negative (Negative) Ur Oxycodone Screen Negative (Negative) Urine Methadone Screen Negative (Negative) Ur Barbiturates Screen Negative (Negative) U Tricyclic Antidepress Negative (Negative) Ur Phencyclidine Scrn Negative (Negative) Ur Amphetamines Screen Negative (Negative) U Methamphetamines Scrn Negative (Negative) Ur MDMA Scrn (Ecstasy) Negative (Negative) U Benzodiazepines Scrn Negative (Negative) Urine Cocaine Screen Negative (Negative) U Marijuana (THC) Screen Negative (Negative) Urine Specific [place] Normal (Normal) Ethyl Alcohol ( - 10) mg/dL Ur Creatinine Normal (Normal) SARS-CoV-2 (PCR) (Negative) Influenza A (RT-PCR) (NEGATIVE) Influenza B (RT-PCR) (NEGATIVE) RSV (PCR) (Negative) 01/10/25 01/10/25 01/11/25 Range/Units 16:32 18:13 03:36 WBC (4.5-11.0) X10^3/uL RBC (4.0-5.2) X10^6/uL Hgb (12.0-16.0) g/dL Hct (36-46) % MCV (80-100) fL MCH (26-34) PG MCHC (30-36) % RDW (11.6-14.8) % Plt Count (150-400) X10^3/uL Neut % (Auto) (50-75) % Lymph % (Auto) (25-40) % [place] % (Auto) (3-14) % Eos % (Auto) (2-4) % Baso % (Auto) (0-2) % Neut # (Auto) (9253-4733) /uL Lymph # (Auto) (9058-0008) /uL [place] # (Auto) (0-900) /uL Eos # (Auto) (0-450) /uL Baso # (Auto) (0-100) /uL PT (9.4-12.5) SECONDS INR (0.9-1.3) APTT (25.1-36.5) SECONDS Sodium (137-145) mmol/L Potassium (3.4-5.1) mmol/L Chloride (98-107) mmol/L Carbon Dioxide (22-32) mmol/L BUN (7-17) mg/dL Creatinine (0.52-1.04) mg/dL Estimated GFR (>60) mL/min BUN/Creatinine Ratio (6-22) Glucose (70-100) mg/dL Lactate (0.7-2.1) mmol/L Calcium (8.4-10.2) mg/dL Magnesium (1.6-2.3) mg/dL Total Bilirubin (0.2-1.3) mg/dL AST (14-36) IU/L ALT (<35) IU/L Alkaline Phosphatase (38-126) U/L Total Creatine Kinase (30-135) U/L Troponin I (0.01-0.034) ng/mL NT-Pro-B Natriuret Pep (<125) pg/mL Total Protein (6.3-8.2) g/dL Albumin (3.5-5.0) g/dL Globulin (1.7-4.1) g/dL Albumin/Globulin Ratio (1.0-2.8) Lipase (23-300) U/L TSH (0.47-4.68) uIU/mL Urine Color Yellow Urine Appearance Clear Urine pH 6.0 (4.5-8.0) Ur Specific [place] 1.010 (1.000-1.035) Urine Protein Negative (Negative) Urine Glucose (UA) Negative (Negative) g/dL Urine Ketones 1+ H (NEGATIVE) Urine Occult Blood Negative (Negative) Urine Nitrate Negative (Negative) Urine Bilirubin Negative (NEGATIVE) Urine Urobilinogen 0.2 (0.2) E.U./dL Ur Leukocyte Esterase Negative (NEGATIVE) Urine RBC None seen (0-5/HPF) Urine WBC None seen (0-5/HPF) Ur Squamous Epith Cells None seen D (0-5/HPF) Urine Bacteria None seen (None) Ur Culture Indicated? Cult not indicated Vol Urine Centrifuged 10ml (spun) CSF Tube Number CSF Volume CSF Appearance (Clear) CSF Color (Colorless) CSF WBC (0-5) MONO/uL CSF RBC RBC /uL CSF Mononuclear WBCs CSF Polynuclear WBCs CSF Glucose (40-70) mg/dL CSF Total Protein (12-60) mg/dL CSF C.neoform/gat PCR (Not Detect) CSF CMV DNA (PCR) (Not Detect) CSF Enterovirus (PCR) (Not Detect) CSF E. coli (PCR) (Not Detect) CSF H. influenzae (PCR) (Not Detect) CSF HSV I (PCR) (Not Detect) CSF HSV II (PCR) (Not Detect) CSF HHV 6 (PCR) (Not Detect) CSF L.monocytogenes PCR (Not Detect) CSF N. meningitidis PCR (Not Detect) CSF Parechovirus (PCR) (Not Detect) CSF S. agalactiae (PCR) (Not Detect) CSF S. pneumoniae (PCR) (Not Detect) CSF VZV (PCR) (Not Detecte) U Opiates 300ng/mL cut (Negative) Ur Oxycodone Screen (Negative) Urine Methadone Screen (Negative) Ur Barbiturates Screen (Negative) U Tricyclic Antidepress (Negative) Ur Phencyclidine Scrn (Negative) Ur Amphetamines Screen (Negative) U Methamphetamines Scrn (Negative) Ur MDMA Scrn (Ecstasy) (Negative) U Benzodiazepines Scrn (Negative) Urine Cocaine Screen (Negative) U Marijuana (THC) Screen (Negative) Urine Specific [place] (Normal) Ethyl Alcohol < 10 ( - 10) mg/dL Ur Creatinine (Normal) SARS-CoV-2 (PCR) Negative (Negative) Influenza A (RT-PCR) Flu a negative (NEGATIVE) Influenza B (RT-PCR) Flu b negative (NEGATIVE) RSV (PCR) Negative (Negative) 01/11/25 Range/Units 09:15 WBC (4.5-11.0) X10^3/uL RBC (4.0-5.2) X10^6/uL Hgb (12.0-16.0) g/dL Hct (36-46) % MCV (80-100) fL MCH (26-34) PG MCHC (30-36) % RDW (11.6-14.8) % Plt Count (150-400) X10^3/uL Neut % (Auto) (50-75) % Lymph % (Auto) (25-40) % [place] % (Auto) (3-14) % Eos % (Auto) (2-4) % Baso % (Auto) (0-2) % Neut # (Auto) (1698-9867) /uL Lymph # (Auto) (8663-4509) /uL [place] # (Auto) (0-900) /uL Eos # (Auto) (0-450) /uL Baso # (Auto) (0-100) /uL PT (9.4-12.5) SECONDS INR (0.9-1.3) APTT (25.1-36.5) SECONDS Sodium (137-145) mmol/L Potassium (3.4-5.1) mmol/L Chloride (98-107) mmol/L Carbon Dioxide (22-32) mmol/L BUN (7-17) mg/dL Creatinine (0.52-1.04) mg/dL Estimated GFR (>60) mL/min BUN/Creatinine Ratio (6-22) Glucose (70-100) mg/dL Lactate (0.7-2.1) mmol/L Calcium (8.4-10.2) mg/dL Magnesium (1.6-2.3) mg/dL Total Bilirubin (0.2-1.3) mg/dL AST (14-36) IU/L ALT (<35) IU/L Alkaline Phosphatase (38-126) U/L Total Creatine Kinase (30-135) U/L Troponin I (0.01-0.034) ng/mL NT-Pro-B Natriuret Pep (<125) pg/mL Total Protein (6.3-8.2) g/dL Albumin (3.5-5.0) g/dL Globulin (1.7-4.1) g/dL Albumin/Globulin Ratio (1.0-2.8) Lipase (23-300) U/L TSH (0.47-4.68) uIU/mL Urine Color Urine Appearance Urine pH (4.5-8.0) Ur Specific [place] (1.000-1.035) Urine Protein (Negative) Urine Glucose (UA) (Negative) g/dL Urine Ketones (NEGATIVE) Urine Occult Blood (Negative) Urine Nitrate (Negative) Urine Bilirubin (NEGATIVE) Urine Urobilinogen (0.2) E.U./dL Ur Leukocyte Esterase (NEGATIVE) Urine RBC (0-5/HPF) Urine WBC (0-5/HPF) Ur Squamous Epith Cells (0-5/HPF) Urine Bacteria (None) Ur Culture Indicated? Vol Urine Centrifuged CSF Tube Number 3 CSF Volume 2.0 ml CSF Appearance Clear (Clear) CSF Color Colorless (Colorless) CSF WBC 1.7 (0-5) MONO/uL CSF RBC 3 RBC /uL CSF Mononuclear WBCs Not Reportable CSF Polynuclear WBCs Not Reportable CSF Glucose 44 (40-70) mg/dL CSF Total Protein 30 (12-60) mg/dL CSF C.neoform/gat PCR Not detected (Not Detect) CSF CMV DNA (PCR) Not detected (Not Detect) CSF Enterovirus (PCR) Not detected (Not Detect) CSF E. coli (PCR) Not detected (Not Detect) CSF H. influenzae (PCR) Not detected (Not Detect) CSF HSV I (PCR) Not detected (Not Detect) CSF HSV II (PCR) Not detected (Not Detect) CSF HHV 6 (PCR) Not detected (Not Detect) CSF L.monocytogenes PCR Not detected (Not Detect) CSF N. meningitidis PCR Not detected (Not Detect) CSF Parechovirus (PCR) Not detected (Not Detect) CSF S. agalactiae (PCR) Not detected (Not Detect) CSF S. pneumoniae (PCR) Not detected (Not Detect) CSF VZV (PCR) Not detected (Not Detecte) U Opiates 300ng/mL cut (Negative) Ur Oxycodone Screen (Negative) Urine Methadone Screen (Negative) Ur Barbiturates Screen (Negative) U Tricyclic Antidepress (Negative) Ur Phencyclidine Scrn (Negative) Ur Amphetamines Screen (Negative) U Methamphetamines Scrn (Negative) Ur MDMA Scrn (Ecstasy) (Negative) U Benzodiazepines Scrn (Negative) Urine Cocaine Screen (Negative) U Marijuana (THC) Screen (Negative) Urine Specific [place] (Normal) Ethyl Alcohol ( - 10) mg/dL Ur Creatinine (Normal) SARS-CoV-2 (PCR) (Negative) Influenza A (RT-PCR) (NEGATIVE) Influenza B (RT-PCR) (NEGATIVE) RSV (PCR) (Negative) Point of Care Testing Glucose POC 80 MDM Narrative Medical decision making narrative: MDM CC: Altered mental status Complicating co-morbidities: [ ] Corroborating data: [ ] Data collected from: [ ] Medical records reviewed: [ ] Differential considered: Sepsis intracranial abnormality Toxicology myxedema coma Exam documented above, pertinent findings include: Confused diffusely weak 49-year-old female Lab Test results independently reviewed as above. Pertinent findings: WBC 4.7 Lactate 1.0 CMP show stable and normal electrolytes creatinine 0.8 potassium 4.1, glucose 81 Bilirubin liver enzymes within normal limits Troponin negative BNP 181 TSH 1.0 Urinalysis initially showed some squamous repeat catheterized urinalysis no evidence of UTI Drug screen negative Independently reviewed EKG as above Imaging studies independently reviewed: Head CT no intracranial abnormalities Chest x-ray no acute cardiopulmonary process Consultations: General surgery, Hospitalist, anesthesia Discussion: Patient 49-year-old female who presents today by POV but needs to be carried out from the car. Initially thought possible Toxicology required full assistance. Upon my initial evaluation she is diffusely weak but awake alert mildly confused. Blood work is overall reassuring she has no leukocytosis she has a normal lactate electrolytes are stable she has negative troponin catheterized urine is negative for any evidence UTI. She was complaining of significant head neck pain. There was initial concern for possible meningitis or least a viral meningitis. Lumbar puncture was attempted a couple of different times did not get any CSF fluid. Patient did her best to tolerate the procedure but it was quite painful for her. She became more awake alert while in the emergency department. Patient has a catheter in place initially needed urinalysis quickly. Patient states that she frequently has urinary retention after catheters. Recommended that she leave the catheter in place for couple of days however she does not want it in place and would like it removed even if she has to come back. Lumbar puncture unsuccessful, however her mental status seems to be improving she still mildly confused but she is afebrile here. Headache and neck pain have improved as well. After ambulation trial headache and nausea worsened. Possible herpes encephalitis. 01/11/2025, 07Simeon Suggs. Sign-out from Dr. Godfrey. 49-year-old female with reported recent urinary tract infection, had headache and fever, screening labs unremarkable, no leukocytosis, normal lactate, urinalysis negative, CT head no acute changes, attempted lumbar puncture on successful, case discussed with hospitalist who would like further attempts. Consider CT-guided LP but no radiology in-house today, could transfer to [facility] if needed. Query anesthesia, they will be coming to the emergency department to attempt lumbar puncture. Assumed care. Anesthesia was successful in obtaining CSF which appeared clear. CSF studies requested, cell count/diff, Gram stain culture, glucose, protein. CSF meningitis panel also ordered. CSF WBC 1.7, RBC 3, glucose 44, protein 30. CSF culture pending. CSF meningitis panel results are still pending. Patient is still symptomatic, consider admission, consult hospitalist Dr. Henry Figueroa reviewed chart, accepts patient for admission to observation Critical Care Time <Benitez Hendrix MD - Last Filed: 01/11/25 20:37> Critical Care Time Critical Care Time: Yes Total Critical Care Time: 35 Attestation: The high probability of a clinically significant, sudden or life threatening deterioration of the [gastrointestinal, central nervous] system(s) required my full and direct attention, intervention and personal management. The aggregate critical care time was [35] minutes. This time is in addition to time spent performing reported procedures but includes the following: [x] Data Review and interpretation [x] Patient assessment and monitoring of vital signs [x] Documentation [x] Medication orders and management Discharge Plan Departure Patient Disposition: Admitted as Observation Clinical Impression: Headache, Nausea and vomiting Admit Date/Time: 01/11/25 10:48 Admit Provider: Juan Figueroa
[2025-01-10] MEDS: KETOROLAC 30 MG/ML VIAL 15 MG IV (19:00)
[2025-01-10] MEDS: SODIUM CHLORIDE 0.9% 1,000 ML 1000 ML IV (19:00)
[2025-01-10 19:03] LABS: Influenza A - CEPHEID Flu A NEGATIVE (NEGATIVE); Influenza B - CEPHEID Flu B NEGATIVE (NEGATIVE); Respiratory Syncytial Virus Negative (Negative)
[2025-01-10 19:04] LABS: COVID-19 CEPHEID 4-PLEX PCR Negative (Negative)
[2025-01-10 19:37] LABS: Thyroid Stimulating Hormone 1.03 uIU/mL (0.47-4.68)
[2025-01-11] VITALS (36 sets, daily range): BP systolic 93–121; BP diastolic 52–80; PULSE 65–95; RESP 8–32; TEMP 36.4–37.4; O2SAT 91–100; BMI 28.1
--- NOTE | 2025-01-11 03:10 | PC.NURSE ---
Dr Gdofrey in to do LP
[2025-01-11] MEDS: HYDROMORPHONE 1 MG INJ IV ×2 (03:12→19:04)
[2025-01-11 03:46] LABS: Appearance Urine UA CLEAR; Bilirubin Urine UA NEGATIVE (NEGATIVE); Color Urine UA YELLOW; Glucose Urine UA NEGATIVE (Negative); Ketones Urine UA 1+ (NEGATIVE); Leukocyte Esterase Urine UA NEGATIVE (NEGATIVE); Nitrite Urine UA NEGATIVE (Negative); Occult Blood Urine UA NEGATIVE (Negative); Protein Urine UA NEGATIVE (Negative); Urobilinogen Urine UA 0.2 E.U./dL (0.2)
[2025-01-11] MEDS: ONDANSETRON 4 MG/2 ML INJ IV ×2 (04:04→10:25)
[2025-01-11 04:19] LABS: Bacteria Urine None Seen; Culture Indicated Urine Cult Not Indicated; RBC Urine None Seen (0-5/HPF); Squamous Epithelial Cell Urine None Seen (0-5/HPF); Urine Volume 10mL (spun); WBC Urine None Seen (0-5/HPF)
[2025-01-11] MEDS: SODIUM CHLORIDE 0.9% 1,000 ML 1000 ML IV (06:02)
[2025-01-11] MEDS: ACETAMINOPHEN IV 1,000 MG/100 ML VIAL 400 MG IV (06:03)
[2025-01-11] MEDS: HYDROMORPHONE 0.5 MG INJ IV ×2 (06:03→08:49)
--- NOTE | 2025-01-11 06:14 | PC.NURSE ---
This CITY ADMINISTRATOR did ambulation trial with the pt. Pt was able to walk slowly to the bathroom and back to the room without any assistance but was next to pt if she needed help. Pt got back into bed and was connected to the monitor again and was complaining of being nauseous and her head was pounding. Dr. Godfrey aware
--- NOTE | 2025-01-11 07:41 | P.CALLCOV_ITS ---
Call Coverage Note Note Narrative of Care Provided: 49 F presenting with encephalopathy. LP attempt initially unsuccessful. Agree with need for admission, but IR is not available until tomorrow for procedure and would need to treat broadly for bacterial and viral meningitis empirically, and delay could result in false negative cultures. If able to obtain CSF, okay for admit here. Have also discussed with ER provider and upstairs unit reactor operator that another option would be a transfer to [facility] for IR guided LP and then return.
--- NOTE | 2025-01-11 09:19 | PM.PROC.1 ---
Procedures Date/Time Date of procedure: 01/11/25 Time of procedure: 09:00 Lumbar Puncture Pre-procedure diagnosis: altered mental status, headache Post-procedure diagnosis: same Time Out Performed: Yes Patient Position: upright (seated, head on walls) Skin Prep: 0.5% Chlorhexidine/Alcohol Local anesthetic used: Lidocaine 1% (pt and advised that lido allergic reaction only with IV lidocaine. Previous attempt at LP by other provider used lido without reaction.) Sedation: other (0.5mg dilauadid) Needle size: other (24g Sprotte) Needle length: 3.5 Interspace: L34 Number of attempts: 1 Fluid collected (mL): 5.5 Fluid description: clear Complications: No Patient tolerance: pt tolerated well
--- NOTE | 2025-01-11 09:23 | PC.NURSE ---
Addendum entered by Cecilia Akbar R.N. 01/11/25 09:24: pt tolerated well. felt nauseous after procedure. vomitted bile. dr. alvares Original Note: assisted Dr. Burke Ambriz with an LP. instructed patient to remain on her back for pressure. bandaid at site.
[2025-01-11 09:54] LABS: Glucose CSF 44 mg/dL (40-70); Total Protein CSF 30 mg/dL (12-60)
[2025-01-11 10:11] LABS: Appearance CSF Clear (Clear); CSF Tube Number 3; CSF Tube Volume 2.0 mL; Color CSF Colorless (Colorless); HOLD TUBE CSF Y; Red Blood Cell CSF 3 RBC /uL; White Blood Cell CSF 1.7 MONO/uL (0-5)
[2025-01-11 10:58] LABS: Cryptococcus neoformans/gattii Not Detected (Not Detect); Enterovirus Not Detected (Not Detect); Escherichia coli K1 Not Detected (Not Detect); Haemophilus influenzae Not Detected (Not Detect); Herpes simplex virus 1 Not Detected (Not Detect); Herpes simplex virus 2 Not Detected (Not Detect); Human herpesvirus 6 Not Detected (Not Detect); Human parechovirus Not Detected (Not Detect); Listeria monocytogenes Not Detected (Not Detect); Neisseria meningitidis Not Detected (Not Detect); Streptococcus agalactiae Not Detected (Not Detect); Streptococcus pneumoniae Not Detected (Not Detect); Varicella Zoster Virus Not Detected (Not Detecte)
[2025-01-11 11:57] LABS: Add Manual Diff / Slide Review NO; Basophils Absolute Auto 0 /uL (0-100); Basophils Percent Auto 0.1 % (0-2); Eosinophils Absolute Auto 100 /uL (0-450); Eosinophils Percent Auto 1.2 % (2-4); Hematocrit 39.1 % (36-46); Hemoglobin 12.9 g/dL (12.0-16.0); Lymphocytes Absolute Auto 800 /uL (1100-4500); Lymphocytes Percent Auto 16.7 % (25-40); Mean Corpuscular Hemoglobin 30.2 PG (26-34); Mean Corpuscular Volume 91.5 fL (80-100); Monocytes Absolute Auto 300 /uL (0-900); Monocytes Percent Auto 6.4 % (3-14); Neutrophils Absolute Auto 3700 /uL (1500-7000); Neutrophils Percent Auto 75.6 % (50-75); Platelet Count 194 X10^3/uL (150-400); Red Blood Cell Count 4.27 X10^6/uL (4.0-5.2); Red Cell Distribution Width 13.9 % (11.6-14.8); White Blood Cell Count 4.9 X10^3/uL (4.5-11.0)
[2025-01-11] MEDS: SODIUM CHLORIDE 0.9% 1,000 ML 100 ML IV (12:00)
[2025-01-11 12:10] LABS: BUN Creatinine Ratio 17.1 (6-22); Blood Urea Nitrogen 13 mg/dL (7-17); Calcium 8.1 mg/dL (8.4-10.2); Carbon Dioxide 21 mmol/L (22-32); Chloride 106 mmol/L (98-107); Estimated Glomerular Filt Rate > 60 mL/min (>60); Glucose 72 mg/dL (70-100); HEMOLYSIS < 15 (0-50); Magnesium 1.8 mg/dL (1.6-2.3); Sodium 136 mmol/L (137-145)
[2025-01-11 12:29] LABS: Base Excess VBG -2.6 mmol/L (0-4); HCO3 VBG 23 mmol/L (24-28); Oxygen Saturation VBG 72 % (70-75); PCO2 VBG 41.3 mmHg (45-50); PO2 VBG 40 mmHg (35-45); Total CO2 VBG 22 mmol/L (24-29); pH VBG 7.35 (7.33-7.43)
--- NOTE | 2025-01-11 16:03 | PM.HP.1 ---
History of Present Illness History of Present Illness Date Patient Seen: 01/11/25 Time Patient Seen: 14:40 Chief complaint: LOC, UTI Narrative: Patient 49-year-old female history of hypothyroidism who presented yesterday evening at the behest of her for altered mental status. Spouse reports he was away on a trip for a couple of days. Approx. 5 days ago now she began experiencing dysuria and urinary frequency along with suprapubic pain. She then developed a head cold and sore neck and headache last evening. She was very weak, found very lethargic unable to move by her spouse yesterday on the cough. Spouse denies EtOH intake, tobacco, or substance use. Patient reports use of dayquil, was alternating tylenol and motrin. Also took remaining 3 days of macrobid prior to admit. In the ER, Tmax was 99, other vitals were unremarkable. Lab evaluation was also unremarkable. UA was negative, blood gas was unremarkable. Initially difficult LP, done by anesthesia with 3 RBC, reported 1.7 WBC, glucose of 44, total protein 30, negative meningitis panel PCR, and negative COVID/Flu/RSV. Her mentation is improving, she still complains of predominantly frontal headache with mild photophobia currently. Complains of mildly productive cough. CXR is negative for any infiltrates per radiology and my own interpretation. Head CT without contrast was negative for acute pathology. She was admitted for further observation. [facility] Medical History (Updated 01/11/25 @ 17:05 by Juan Figueroa DO) Hypothyroidism Social History household members: spouse Smoking Status: Never smoker alcohol intake: never Meds Home Medications and Allergies Home Medications Medication Instructions Recorded Confirmed Type Semaglutide/B12 0.34 ml SUBCUT WEEKLY 01/11/25 01/11/25 History allergen 1 tab sublingual DAILY 01/11/25 01/11/25 History xt,mite,D.farinae-D.pteronyssinus 12 SQ-HDM sublingual tablet (Odactra) levothyroxine 88 mcg tablet 88 mcg PO DAILY 01/11/25 01/11/25 History liothyronine 5 mcg tablet 5 mcg PO DAILY 01/11/25 01/11/25 History naltrexone 1.5 mg capsule 2.5 mg PO BEDTIME 01/11/25 01/11/25 History progesterone micronized 200 mg 200 mg PO BEDTIME 01/11/25 01/11/25 History capsule Allergies Allergy/AdvReac Type Severity Reaction Status Date / Time ciprofloxacin [From Cipro] Allergy Unknown Verified 01/10/25 17:47 lidocaine Allergy Unknown Verified 01/10/25 17:47 morphine Allergy Unknown Verified 01/10/25 17:47 pregabalin [From Lyrica] Allergy Unknown Verified 01/10/25 17:47 Review of Systems Review of Systems Narrative: All other systems reviewed with the patient and are negative unless otherwise stated. Exam Vital Signs (past 8 hours): - 01/11/25 08:30 01/11/25 08:30 01/11/25 09:00 Temperature Pulse Rate 81 70 Respiratory Rate 19 20 Blood Pressure 107/62 Pulse Oximetry 91 98 Oxygen Delivery Method Oxygen Flow Rate 01/11/25 09:16 01/11/25 09:30 01/11/25 09:30 Temperature Pulse Rate 95 H 78 Respiratory Rate 13 16 Blood Pressure 102/61 Pulse Oximetry 97 93 Oxygen Delivery Method Oxygen Flow Rate 01/11/25 09:45 01/11/25 09:45 01/11/25 10:00 Temperature Pulse Rate 72 69 Respiratory Rate 17 17 Blood Pressure 104/57 L Pulse Oximetry 92 93 Oxygen Delivery Method Oxygen Flow Rate 01/11/25 10:00 01/11/25 10:15 01/11/25 10:15 Temperature Pulse Rate 68 Respiratory Rate 16 Blood Pressure 103/56 L 103/59 L Pulse Oximetry 93 Oxygen Delivery Method Oxygen Flow Rate 01/11/25 10:32 01/11/25 10:32 01/11/25 10:45 Temperature Pulse Rate 69 66 Respiratory Rate 16 16 Blood Pressure 99/57 L Pulse Oximetry 92 95 Oxygen Delivery Method Oxygen Flow Rate 01/11/25 10:45 01/11/25 11:00 01/11/25 11:00 Temperature Pulse Rate 67 Respiratory Rate 17 Blood Pressure 102/55 L 98/57 L Pulse Oximetry 95 Oxygen Delivery Method Oxygen Flow Rate 01/11/25 11:15 01/11/25 11:15 01/11/25 11:37 Temperature Pulse Rate 66 Respiratory Rate 17 Blood Pressure 102/56 L Pulse Oximetry 94 99 Oxygen Delivery Method Room Air Oxygen Flow Rate 0 01/11/25 12:14 Temperature 97.5 F L Pulse Rate 68 Respiratory Rate 14 Blood Pressure 106/68 Pulse Oximetry 99 Oxygen Delivery Method Oxygen Flow Rate 0 Oxygen Delivery Method Room Air Oxygen Flow Rate 0 Narrative Exam Narrative: General:? Patient is well developed and well nourished, in no distress at this time but is ill appearing, lethargic but alert and oriented. Room lights are off. HEENT:? Normocephalic, atraumatic, extraocular muscles intact, oral pharynx is clear and mucous membranes are moist. Neck: supple and symmetric, trachea is midline, no cervical adenopathy. Chest:? Normal AP diameter and contour without kyphoscoliosis, no tachypnea, equal chest rise bilaterally. Lungs:? CTA b/l no wheezing rhonchi or rales. Cardio:?RRR no m/r/g. Abdomen: S NT ND. Musculoskeletal:? Muscle strength and tone are equal within normal limits, no deformity. Extremities: No edema or joint effusions. No cyanosis or clubbing. Skin:? Pale,? Warm to touch,dry and intact without rashes, ulcerations or petechiae.? Neuro:? Alert and orientated x3,? sensation to touch intact in all extremities, no gross deficits noted of cranial nerves. Psych:? Patient has a well-kept appearance, appropriate affect, mental status attitude thought context and judgment are appropriate for age. Objective ECG Impression: Sinus rhythm with short OR interval no evidence of acute ischemia. Labs 01/11/25 11:45 01/11/25 11:45 Labs: Laboratory Results - last 24 hr 01/10/25 01/10/25 01/10/25 16:15 16:31 16:31 WBC 4.7 RBC 5.25 H Hgb 16.0 Hct 48.2 H MCV 91.8 MCH 30.5 MCHC 33.2 RDW 14.4 Plt Count 228 Neut % (Auto) 65.0 Lymph % (Auto) 22.7 L [place] % (Auto) 7.2 Eos % (Auto) 4.7 H Baso % (Auto) 0.4 Neut # (Auto) 3100 Lymph # (Auto) 1100 [place] # (Auto) 300 Eos # (Auto) 200 Baso # (Auto) 0 PT 10.5 INR 0.9 APTT 33 VBG pH VBG pCO2 VBG pO2 VBG HCO3 VBG Total CO2 VBG O2 Saturation VBG Base Excess Sodium 136 L Potassium 4.1 Chloride 104 Carbon Dioxide 24 BUN 9 Creatinine 0.86 Estimated GFR > 60 BUN/Creatinine Ratio 10.5 Glucose 81 Lactate 1.0 Calcium 9.8 Magnesium 1.9 Total Bilirubin 0.4 AST 26 ALT 21 Alkaline Phosphatase 49 Total Creatine Kinase 39 Troponin I < 0.012 NT-Pro-B Natriuret Pep 181 H Total Protein 7.6 Albumin 4.6 Globulin 3.0 Albumin/Globulin Ratio 1.5 Lipase 67 TSH 1.03 Urine Color Yellow Urine Appearance Clear Urine pH 7.0 Normal Ur Specific [place] 1.010 Urine Protein Negative Urine Glucose (UA) Negative Urine Ketones Trace H Urine Occult Blood Negative Urine Nitrate Negative Urine Bilirubin Negative Urine Urobilinogen 0.2 Ur Leukocyte Esterase Negative Urine RBC 0-1/hpf Urine WBC 0-1/hpf Ur Squamous Epith Cells 10-30 /hpf H Urine Bacteria Many (>30) H Ur Culture Indicated? Cult not indicated Vol Urine Centrifuged 10ml (spun) CSF Tube Number CSF Volume CSF Appearance CSF Color CSF WBC CSF RBC CSF Mononuclear WBCs CSF Polynuclear WBCs CSF Glucose CSF Total Protein CSF C.neoform/gat PCR CSF CMV DNA (PCR) CSF Enterovirus (PCR) CSF E. coli (PCR) CSF H. influenzae (PCR) CSF HSV I (PCR) CSF HSV II (PCR) CSF HHV 6 (PCR) CSF L.monocytogenes PCR CSF N. meningitidis PCR CSF Parechovirus (PCR) CSF S. agalactiae (PCR) CSF S. pneumoniae (PCR) CSF VZV (PCR) U Opiates 300ng/mL cut Negative Ur Oxycodone Screen Negative Urine Methadone Screen Negative Ur Barbiturates Screen Negative U Tricyclic Antidepress Negative Ur Phencyclidine Scrn Negative Ur Amphetamines Screen Negative U Methamphetamines Scrn Negative Ur MDMA Scrn (Ecstasy) Negative U Benzodiazepines Scrn Negative Urine Cocaine Screen Negative U Marijuana (THC) Screen Negative Urine Specific [place] Normal Ethyl Alcohol Ur Creatinine Normal SARS-CoV-2 (PCR) Influenza A (RT-PCR) Influenza B (RT-PCR) RSV (PCR) 01/10/25 01/10/25 01/11/25 16:32 18:13 03:36 WBC RBC Hgb Hct MCV MCH MCHC RDW Plt Count Neut % (Auto) Lymph % (Auto) [place] % (Auto) Eos % (Auto) Baso % (Auto) Neut # (Auto) Lymph # (Auto) [place] # (Auto) Eos # (Auto) Baso # (Auto) PT INR APTT VBG pH VBG pCO2 VBG pO2 VBG HCO3 VBG Total CO2 VBG O2 Saturation VBG Base Excess Sodium Potassium Chloride Carbon Dioxide BUN Creatinine Estimated GFR BUN/Creatinine Ratio Glucose Lactate Calcium Magnesium Total Bilirubin AST ALT Alkaline Phosphatase Total Creatine Kinase Troponin I NT-Pro-B Natriuret Pep Total Protein Albumin Globulin Albumin/Globulin Ratio Lipase TSH Urine Color Yellow Urine Appearance Clear Urine pH 6.0 Ur Specific [place] 1.010 Urine Protein Negative Urine Glucose (UA) Negative Urine Ketones 1+ H Urine Occult Blood Negative Urine Nitrate Negative Urine Bilirubin Negative Urine Urobilinogen 0.2 Ur Leukocyte Esterase Negative Urine RBC None seen Urine WBC None seen Ur Squamous Epith Cells None seen D Urine Bacteria None seen Ur Culture Indicated? Cult not indicated Vol Urine Centrifuged 10ml (spun) CSF Tube Number CSF Volume CSF Appearance CSF Color CSF WBC CSF RBC CSF Mononuclear WBCs CSF Polynuclear WBCs CSF Glucose CSF Total Protein CSF C.neoform/gat PCR CSF CMV DNA (PCR) CSF Enterovirus (PCR) CSF E. coli (PCR) CSF H. influenzae (PCR) CSF HSV I (PCR) CSF HSV II (PCR) CSF HHV 6 (PCR) CSF L.monocytogenes PCR CSF N. meningitidis PCR CSF Parechovirus (PCR) CSF S. agalactiae (PCR) CSF S. pneumoniae (PCR) CSF VZV (PCR) U Opiates 300ng/mL cut Ur Oxycodone Screen Urine Methadone Screen Ur Barbiturates Screen U Tricyclic Antidepress Ur Phencyclidine Scrn Ur Amphetamines Screen U Methamphetamines Scrn Ur MDMA Scrn (Ecstasy) U Benzodiazepines Scrn Urine Cocaine Screen U Marijuana (THC) Screen Urine Specific [place] Ethyl Alcohol < 10 Ur Creatinine SARS-CoV-2 (PCR) Negative Influenza A (RT-PCR) Flu a negative Influenza B (RT-PCR) Flu b negative RSV (PCR) Negative 01/11/25 01/11/25 01/11/25 09:15 11:45 12:25 WBC 4.9 RBC 4.27 Hgb 12.9 Hct 39.1 MCV 91.5 MCH 30.2 MCHC 33.0 RDW 13.9 Plt Count 194 Neut % (Auto) 75.6 H Lymph % (Auto) 16.7 L [place] % (Auto) 6.4 Eos % (Auto) 1.2 L Baso % (Auto) 0.1 Neut # (Auto) 3700 Lymph # (Auto) 800 L [place] # (Auto) 300 Eos # (Auto) 100 Baso # (Auto) 0 PT INR APTT VBG pH 7.35 VBG pCO2 41.3 L VBG pO2 40 VBG HCO3 23 L VBG Total CO2 22 L VBG O2 Saturation 72 VBG Base Excess -2.6 L Sodium 136 L Potassium 4.0 Chloride 106 Carbon Dioxide 21 L BUN 13 Creatinine 0.76 Estimated GFR > 60 BUN/Creatinine Ratio 17.1 Glucose 72 Lactate Calcium 8.1 L Magnesium 1.8 Total Bilirubin AST ALT Alkaline Phosphatase Total Creatine Kinase Troponin I NT-Pro-B Natriuret Pep Total Protein Albumin Globulin Albumin/Globulin Ratio Lipase TSH Urine Color Urine Appearance Urine pH Ur Specific [place] Urine Protein Urine Glucose (UA) Urine Ketones Urine Occult Blood Urine Nitrate Urine Bilirubin Urine Urobilinogen Ur Leukocyte Esterase Urine RBC Urine WBC Ur Squamous Epith Cells Urine Bacteria Ur Culture Indicated? Vol Urine Centrifuged CSF Tube Number 3 CSF Volume 2.0 ml CSF Appearance Clear CSF Color Colorless CSF WBC 1.7 CSF RBC 3 CSF Mononuclear WBCs Not Reportable CSF Polynuclear WBCs Not Reportable CSF Glucose 44 CSF Total Protein 30 CSF C.neoform/gat PCR Not detected CSF CMV DNA (PCR) Not detected CSF Enterovirus (PCR) Not detected CSF E. coli (PCR) Not detected CSF H. influenzae (PCR) Not detected CSF HSV I (PCR) Not detected CSF HSV II (PCR) Not detected CSF HHV 6 (PCR) Not detected CSF L.monocytogenes PCR Not detected CSF N. meningitidis PCR Not detected CSF Parechovirus (PCR) Not detected CSF S. agalactiae (PCR) Not detected CSF S. pneumoniae (PCR) Not detected CSF VZV (PCR) Not detected U Opiates 300ng/mL cut Ur Oxycodone Screen Urine Methadone Screen Ur Barbiturates Screen U Tricyclic Antidepress Ur Phencyclidine Scrn Ur Amphetamines Screen U Methamphetamines Scrn Ur MDMA Scrn (Ecstasy) U Benzodiazepines Scrn Urine Cocaine Screen U Marijuana (THC) Screen Urine Specific [place] Ethyl Alcohol Ur Creatinine SARS-CoV-2 (PCR) Influenza A (RT-PCR) Influenza B (RT-PCR) RSV (PCR) Assessment & Plan Assessment & Plan narrative: 1. Acute encephalopathy, improving, likely metabolic vs complex migraine - unclear etiology at this time. But she is improving, now AxO x3. - continue as needed pain relief - given headache and mild photophobia, with negative LP, trial sumatriptan for possible complex migraine - UA negative but recent symptoms treated at home, also with recent viral syndrome and cough, treat for both with treatment for PNA - possible toxic encephalopathy but no known intoxications - consider PT/OT. - doubt seizure but in the differential. 2. Possible bacterial pneumonia, likely resolved acute cystitis - continue ceftriaxone and azithromycin with recent productive cough, though CXR negative. - UA negative but treated at home with macrobid. - will order blood cultures, not drawn in ER. 3. Hypothyroidism - check TSH and B12. Code: Full, surrogate is patient's spouse DVT: Lovenox daily I have utilized all available immediate resources to obtain, update, or review the patient's current medications. Dispo: patient admitted under observation status given current improvement, possible discharge home tomorrow depending on her improvement in mentation and above evaluation. Additional history obtained via discussions with the ER provider and patient's spouse. These discussions contributed to the creation of the above assessment and plan. I have reviewed patient's presenting documentation, labs, and imaging personally. Time-Based Coding :: [TOTAL MINUTES] spent with patient and on the chart (including review of chart, obtaining history, exam, reviewing outside data, placing orders, documenting exam and treatment plan, and counseling patient) on [DATE]. Quality VTE Deep Vein Thrombosis/Pulmonary Embolism Present on Admission: No
[2025-01-11] MEDS: SUMAtriptan 6 MG/0.5 ML VIAL SUBCUT (17:55)
[2025-01-11] MEDS: cefTRIAXone 1,000 MG in SODIUM CHLORIDE 0.9% 100 ML 200 MG IV (18:01)
--- NOTE | 2025-01-11 18:05 | EKG_ITS ---
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
--- NOTE | 2025-01-11 18:25 | PM.CALLCOV.1 ---
Call Coverage Note Note Narrative of Care Provided: Approx 6 pm after dose of sumatriptan patient with sudden onset of neck and chest discomfort, mild shortness of breath. EKG is similar to prior with sinus rhythm with short OK. non-specific borderline ST depression in V4-5. Have ordered D-dimer and troponin for further evaluation. 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 Ordered Psitticosis IgG and IgM antibodies, sputum culture, and patient is on ceftriaxone and azithromycin. If D-dimer is elevated consider CTA.
--- NOTE | 2025-01-11 18:36 | PC.NURSE ---
After patient received Sumitriptan medication subcutaneous, patient instantly reported 5/10 neck pain, chest pain and BUE pain with dyspnea. Recent bladder scan revealed 220mL. Dr. Figueroa notified promptly, ekg revealed SR, telemetry during event revealed sinus rhythm without any changes. VSS-- 100% O2 on RA, 120/80, 79HR, 32RR. After 20 minutes she reported the neck pain, chest pain and BUE pain with dyspnea completely resolved. She used the BSC and voided 600mL. Cardiac labs pending.
[2025-01-11] MEDS: AZITHROMYCIN 500 MG in DEXTROSE 5% IN WATER 250 ML 250 MG IV (18:45)
[2025-01-11 19:33] LABS: D Dimer 762 ng/ml (<500)
[2025-01-11 19:49] LABS: Troponin I < 0.012 ng/mL (0.01-0.034)
[2025-01-12] VITALS: BP 118/72; PULSE 67; RESP 14; TEMP 37; O2SAT 96
[2025-01-12] MEDS: SODIUM CHLORIDE 0.9% 1,000 ML 100 ML IV ×2 (00:12→10:10)
[2025-01-12] MEDS: diphenhydrAMINE 50 MG/ML VIAL 25 MG IV (02:35)
[2025-01-12] MEDS: KETOROLAC 30 MG/ML VIAL IV (02:36)
[2025-01-12] MEDS: METOCLOPRAMIDE 10 MG/2 ML INJ IV (02:36)
[2025-01-12 02:57] VITALS: O2SAT 96
[2025-01-12 04:35] VITALS: BP 102/66; PULSE 69; RESP 16; TEMP 36.7; O2SAT 97
[2025-01-12] MEDS: LIOTHYRONINE 5 MCG TABLET PO (05:28)
[2025-01-12] MEDS: LEVOTHYROXINE 88 MCG TABLET PO (05:28)
[2025-01-12 06:46] LABS: Add Manual Diff / Slide Review NO; Basophils Absolute Auto 0 /uL (0-100); Basophils Percent Auto 0.2 % (0-2); Eosinophils Absolute Auto 100 /uL (0-450); Eosinophils Percent Auto 2.2 % (2-4); Hematocrit 37.4 % (36-46); Hemoglobin 12.6 g/dL (12.0-16.0); Lymphocytes Absolute Auto 1400 /uL (1100-4500); Lymphocytes Percent Auto 31.3 % (25-40); Mean Corpuscular HGB Conc 33.5 % (30-36); Mean Corpuscular Hemoglobin 30.3 PG (26-34); Mean Corpuscular Volume 90.4 fL (80-100); Monocytes Absolute Auto 400 /uL (0-900); Monocytes Percent Auto 8.1 % (3-14); Neutrophils Absolute Auto 2700 /uL (1500-7000); Neutrophils Percent Auto 58.2 % (50-75); Platelet Count 190 X10^3/uL (150-400); Red Blood Cell Count 4.14 X10^6/uL (4.0-5.2); Red Cell Distribution Width 13.5 % (11.6-14.8); White Blood Cell Count 4.6 X10^3/uL (4.5-11.0)
[2025-01-12 06:57] LABS: Hemoglobin A1C% w Est Avg Glu 4.8 % (4.0-6.0)
[2025-01-12 06:59] LABS: BUN Creatinine Ratio 12.7 (6-22); Blood Urea Nitrogen 9 mg/dL (7-17); Carbon Dioxide 23 mmol/L (22-32); Chloride 108 mmol/L (98-107); Estimated Glomerular Filt Rate > 60 mL/min (>60); Glucose 77 mg/dL (70-100); HEMOLYSIS < 15 (0-50); Magnesium 1.9 mg/dL (1.6-2.3); Potassium 3.8 mmol/L (3.4-5.1); Sodium 135 mmol/L (137-145)
[2025-01-12 08:00] VITALS: BP 123/80; PULSE 66; RESP 16; TEMP 36.7; O2SAT 94
[2025-01-12] MEDS: ENOXAPARIN 40 MG/0.4 ML SYRINGE SUBCUT (08:13)
[2025-01-12] MEDS: HYDROMORPHONE 1 MG INJ IV (08:13)
[2025-01-12] MEDS: BUTALB/APAP/CAFFEINE 50/325/40 TABLET 1 EACH PO ×2 (08:13→15:00)
[2025-01-12 08:19] LABS: Vitamin B12 Reflex MMA if <400 > 1000 pg/mL (239-931)
[2025-01-12] MEDS: LORazepam 2 MG/ML INJ 1 MG IV (12:23)
[2025-01-12 12:25] LABS: Hematocrit 40.1 % (36-46); Hemoglobin 13.3 g/dL (12.0-16.0); Mean Corpuscular HGB Conc 33.1 % (30-36); Mean Corpuscular Hemoglobin 30.4 PG (26-34); Mean Corpuscular Volume 91.8 fL (80-100); Platelet Count 203 X10^3/uL (150-400); Red Blood Cell Count 4.37 X10^6/uL (4.0-5.2); Red Cell Distribution Width 13.7 % (11.6-14.8); White Blood Cell Count 4.8 X10^3/uL (4.5-11.0)
[2025-01-12 12:42] LABS: Alanine Aminotransferase 21 IU/L (<35); Albumin 3.9 g/dL (3.5-5.0); Albumin Globulin Ratio 1.4 (1.0-2.8); Alkaline Phosphatase 41 U/L (38-126); Aspartate Aminotransferase 33 IU/L (14-36); BUN Creatinine Ratio 14.7 (6-22); Bilirubin Total 0.4 mg/dL (0.2-1.3); Blood Urea Nitrogen 10 mg/dL (7-17); Calcium 8.1 mg/dL (8.4-10.2); Carbon Dioxide 19 mmol/L (22-32); Chloride 108 mmol/L (98-107); Estimated Glomerular Filt Rate > 60 mL/min (>60); Globulin 2.7 g/dL (1.7-4.1); Glucose 81 mg/dL (70-100); HEMOLYSIS 38 (0-50); Sodium 134 mmol/L (137-145); Total Protein 6.6 g/dL (6.3-8.2)
--- NOTE | 2025-01-12 15:25 | PT.IIE ---
Medical History (Last Updated 01/11/25 @ 17:05 by Juan Figueroa DO) Hypothyroidism Physical Therapy Inpatient Evaluation/Re-Eval M1 PT/OT-IP Prior Functional Status Start: 01/12/25 16:29 Freq: NEEDED Status: Active Protocol: Document 01/12/25 15:25 AB (Rec: 01/12/25 16:47 AB [id number]) Medical Review Prior Functional Status Medical History Reviewed Yes Communication able to make needs known Mobility and Gait pt stated that she was independent with all mobilities and ambulation without AD Social History Household Members spouse Living Arrangements House Number of Floors (Floors) One Floor Number of Stairs To Enter/Railing? 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 M2 PT-IP Current Condition Start: 01/12/25 16:29 Freq: NEEDED Status: Active Protocol: Document 01/12/25 15:25 AB (Rec: 01/12/25 16:47 AB [id number]) Physical Therapy Current Condition Current Condition Evaluation Date 01/12/25 Treatment Diagnosis acute encephalopathy; difficulty in walking Onset Date 01/11/25 M3 PT-IP Subjective Start: 01/12/25 16:29 Freq: NEEDED Status: Active Protocol: Document 01/12/25 15:25 AB (Rec: 01/12/25 16:47 AB [id number]) Subjective Physical Therapy Visit Type Type Initial Evaluation Visit Start Time 15:25 Visit Stop Time 15:45 Number of SENIOR RESEARCH SCIENTIST Visits 0 Physical Therapy Visit Comments Patient Comments agreeable to do PT M4 PT-IP Mobility and Gait Start: 01/12/25 16:29 Freq: NEEDED Status: Active Protocol: Document 01/12/25 15:25 AB (Rec: 01/12/25 16:47 AB [id number]) PT-Transfer Assessment Sit to and From Stand Sit to and from Stand Standby Assistance,1 Person Assistance,Use of Upper Extremities Equipment Transfer Assistive Device None,Gait Belt Orthotic/Prosthetic Devices or Brace: No Comments Mobility Comments pt up using the toilet and was just getting out with spouse assisting. pt ambulating without AD. pt sat on EOB. obtained PLOF and home set up. pt stated that she had a few falls at home due to dizziness and passing out after sitting on a curled up position. stated that she knows to give sit upright with legs down on the floor for a few minutes before getting up but stated that sometimes she forgets to do it. informed pt to let her PCP know for further testing. BP siittin/70. sit to stand SBA and ambulated in room without AD SBA to occasional CGA. unsteady swaying gait but without LOB. pt sat on EOB. BP checked: 114/73. sit to stand again SBA and pt just stood up for a few minutes. BP chekced: 109 /74. Checked again after a few minutes: 109/75. pt completed up/down step stool using foot rail as step rail SBA. pt ambulated back to the EOB SBA. educated pt on safety and assistance needed. pt and spouse without further concerns. Gait Assessment Gait Gait Assistance Required: Standby Assistance,Contact Guard Assist Distance (Feet) 20 Able to Maintain Weight Bearing Status Yes During Gait Assistive Devices Assistive Device None Orthotic/Prosthetic Devices or Brace: No Gait Deviations General Gait Pattern Ataxic,Decreased Stride Length ,Decreased Feet Clearance Factors Limiting Gait Function Factors Limiting Gait Function Decreased Activity Tolerance, Poor Balance Stair Climbing Assessment Evaluation Level of Assist On Stairs Standby Assistance Devices Stair Climbing Assistive Devices Right Railing Technique/Endurance Stair Climbing Direction Ascend and Descend Stair Climbing Technique Step to Step Number of Steps Climbed 1 Query Text: Stair Climbing Set # Repetitions (reps) 2 PT-Balance Assessment Sitting Balance and Reactions Static Sitting Balance Ability Normal Dynamic Sitting Balance Ability Normal Standing Balance and Reactions Static Standing Balance Ability Good Dynamic Standing Balance Ability Fair Device Used without AD M5 PT-IP Objective Assessments Start: 01/12/25 16:29 Freq: NEEDED Status: Active Protocol: Document 01/12/25 15:25 AB (Rec: 01/12/25 16:47 AB [id number]) Orientation Orientation/Cognition Level of Alertness Alert Orientation Name,Age,Birthday,Month,Date, Year,Day of Week,Place, Situation Safety Awareness Understands Safety Issues Memory Description No Deficits Noted Gross Range of Motion Lower Extremity ROM Assessment Within Functional Limits Strength Lower Extremity Strength Assessment Within Functional Limits Sensation Assessment Sensation Gross Sensation WNL Muscle Tone Muscle Tone WNL Yes M6 PT-IP Treatment Start: 01/12/25 16:29 Freq: NEEDED Status: Active Protocol: Document 01/12/25 15:25 AB (Rec: 01/12/25 16:47 AB [id number]) Physical Therapy Treatment Education Education Provided Safety M7 PT-IP Assessment and Plan Start: 01/12/25 16:29 Freq: NEEDED Status: Active Protocol: Document 01/12/25 15:25 AB (Rec: 01/12/25 16:47 AB [id number]) PT Summary Assessment and Plan Potential Rehabilitation Potential Fair Status of Condition at Evaluation Evolving Summary Impairments Pain,ROM,Strength,Balance, Coordination,Sensation,Tone, Cognition,Bed Mobility, Transfers,Gait,Activity Tolerance Assessment Summary pt is a 49 y/o F who is admitted for acute encephalopathy. pt requiring SBA to occasional CGA for transfers and ambulation without AD. pt with unsteady gait. pt plans to go home and spouse to assist her. pt presents with generalized weakness and decrease activity tolerance affecting mobility. Goals Bed Mobility Goal Independent Transfer Goal Independent Gait Goal Independent Gait Distance 300 Other Goals up/down 4 steps 1 rail mod I Days to Meet Goals 5 Frequency of Treatment Frequency Of Treatment Once a Day Treatment Plan Physical Therapy Treatment Plan Bed Mobility Training,Transfer Training,Gait Training, Therapeutic Exercise,Balance Retraining,Discharge Planning, Hot or Cold Pack,Neuromuscular Re-ed,Coordination Retraining ,Manual Therapy Recommendations To Nursing Amount of Assist Needed 1 Person Assist Discharge Recommendations PT Discharge Recommendations Home with Assistance Transportation Needs at Discharge Private Vehicle
[2025-01-12 16:00] VITALS: BP 125/70; PULSE 67; RESP 17; TEMP 36.7; O2SAT 97
--- NOTE | 2025-01-12 16:59 | CM.DANOTE ---
B DCP Assessment Note pt is a 49yo F admitted with acute encephalopathy of unknown etiology. potential pna vs UTI? PCP Abad Trujillo [facility] DIRECTOR ACUTE reviewed EMR. Per chart review, pt lives with spouse indep in [place]. 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 Per provider in morning rounds, potential dc later today. Per RN report, pt much improved. no obvious CM needs. PT=home with assist. DIRECTOR ACUTE unable to meet with pt today due to triaging needs. P: anticipate home with family and OP f/u likely recommended. no anticipated CM needs at this time. CM team will continue to follow as needed. SRINIVASA Willoughby Discharge Planning/Care Management CM Discharge Assessment Start: 01/12/25 16:58 Freq: Status: Active Protocol: Document 01/12/25 16:59 SL (Rec: 01/12/25 16:59 SL [id number]) Discharge Planning Assessment Assigned Water Commissioner SRINIVASA Rawls DPOA/Assigned Designee Name Sawyer, spouse Contact Information [phone] Advance Directives? No History Provided By Patient,Family Member Prior Living Arrangements House Household Members spouse Type of transporation used prior to Drives own vehicle admit Independent with ADL's Yes Is patient alert and oriented? Yes Discharge Plan Home Referrals Initiated None needed Review Status In Process Please Provide Date Initial DC 01/12/25 Assessment Was Performed Next Review Type Continued Stay Review
[2025-01-12 17:19] LABS: Procalcitonin 0.046 ng/mL (<0.5)
--- NOTE | 2025-01-12 18:08 | P.DS_ITS ---
History of Present Illness History of Present Illness Chief complaint: LOC, UTI Narrative: From H&P: Patient 49-year-old female history of hypothyroidism who presented yesterday evening at the behest of her for altered mental status. Spouse reports he was away on a trip for a couple of days. Approx. 5 days ago now she began experiencing dysuria and urinary frequency along with suprapubic pain. She then developed a head cold and sore neck and headache last evening. She was very weak, found very lethargic unable to move by her spouse yesterday on the cough. Spouse denies EtOH intake, tobacco, or substance use. Patient reports use of dayquil, was alternating tylenol and motrin. Also took remaining 3 days of macrobid prior to admit. In the ER, Tmax was 99, other vitals were unremarkable. Lab evaluation was also unremarkable. UA was negative, blood gas was unremarkable. Initially difficult LP, done by anesthesia with 3 RBC, reported 1.7 WBC, glucose of 44, total protein 30, negative meningitis panel PCR, and negative COVID/Flu/RSV. Her mentation is improving, she still complains of predominantly frontal headache with mild photophobia currently. Complains of mildly productive cough. CXR is negative for any infiltrates per radiology and my own interpretation. Head CT without contrast was negative for acute pathology. She was admitted for further observation. Discharge Providers Provider Date of admission: 01/11/25 10:48 Discharge Date: 01/12/25 Primary care physician: Abad Trujillo MD Consults: 01/12/25 12:01 Consult to Occupational Therapy Evaluate & Treat Comment: Physician Instructions: Evaluate and treat Consult to Physical Therapy Evaluate & Treat Comment: Physician Instructions: Evaluate and Treat Discharge provider: Braydon Chahal MD Summary Hospital Course Discharge Diagnosis: 1. Complex migraine with encephalopathy, present on admission and much improved. 2. Hypothyroidism, stable. Hospital Course: She was admitted with encephalopathy, headache, and photophobia. She was no history of migraine headaches. She was treated symptomatically after a lumbar puncture revealed negative CSF. She was placed on antibiotics initially for a question of a pulmonary infiltrate but had no respiratory symptoms. She improved dramatically with medical treatment and on the day of discharge described a throbbing headache with photophobia and hyperacusis. Her mental status was then normal. All microbiology results were negative. She has been under a lot of stress recently, but denies any history of migraines throughout her life. She was under some stress regarding the ongoing stability of her job with [employer]. She did improve dramatically with her medications and is comfortable returning home with close follow up with primary care. Status at Discharge Cognitive/behavioral status at discharge: oriented Functional status at discharge: independent ambulation Overall status at discharge: patient is progressing back to baseline Time Spent with Patient Time spent: Greater than 30 minutes Exam Vital Signs (past 8 hours): - 01/12/25 16:00 01/12/25 16:00 Temperature 98.1 F Pulse Rate 67 Respiratory Rate 17 Blood Pressure 125/70 Pulse Oximetry 97 97 Oxygen Delivery Method Room Air Oxygen Flow Rate 0 Oxygen Delivery Method Room Air Oxygen Flow Rate 0 Narrative Exam Narrative: NAD, alert and oriented. Fluent speech. Lungs are clear, normal rate and effort. Heart is regular, no murmur gallop or rub. Abdomen is soft, non distended. Extremities are free of edema. Neuro: Cranial nerves are normal, conjugate gaze, no nystagmus. Normal speech, and judgment. She was oriented x3. Normal motor strength of arms and legs. Normal gait. Objective ECG Impression: Sinus tachycardia with short RI Nonspecific ST and T wave abnormality Imaging Chest x-ray: Radiologist's impression: No acute pulmonary process. Labs 01/12/25 12:10 01/12/25 12:10 Labs: Laboratory Results - last 24 hr 01/11/25 01/12/25 01/12/25 19:13 06:12 12:10 WBC 4.6 4.8 RBC 4.14 4.37 Hgb 12.6 13.3 Hct 37.4 40.1 MCV 90.4 91.8 MCH 30.3 30.4 MCHC 33.5 33.1 RDW 13.5 13.7 Plt Count 190 203 Neut % (Auto) 58.2 Lymph % (Auto) 31.3 [place] % (Auto) 8.1 Eos % (Auto) 2.2 Baso % (Auto) 0.2 Neut # (Auto) 2700 Lymph # (Auto) 1400 [place] # (Auto) 400 Eos # (Auto) 100 Baso # (Auto) 0 D-Dimer 762 H Sodium 135 L 134 L Potassium 3.8 4.0 Chloride 108 H 108 H Carbon Dioxide 23 19 L BUN 9 10 Creatinine 0.71 0.68 Estimated GFR > 60 > 60 BUN/Creatinine Ratio 12.7 14.7 Glucose 77 81 Hemoglobin A1c 4.8 Calcium 8.0 L 8.1 L Magnesium 1.9 Total Bilirubin 0.4 AST 33 ALT 21 Alkaline Phosphatase 41 Troponin I < 0.012 Total Protein 6.6 Albumin 3.9 Globulin 2.7 Albumin/Globulin Ratio 1.4 Vitamin B12 > 1000 H Procalcitonin 0.046 TSH 2.50 PFSH Medical History (Updated 01/11/25 @ 17:05 by Juan Figueroa DO) Hypothyroidism Social History household members: spouse Smoking Status: Never smoker alcohol intake: never Discharge Assessment & Plan Assessment and Plan Assessment: 1. Complex migraine with encephalopathy, present on admission and much improved. 2. Hypothyroidism, stable. Plan of Treatment: Discharge home with a small supply of pain medication and Ativan which improved her symptoms quite a bit here she will specifically be giving Fioricet which improved her dramatically over the other medication she received. Her has a history of migraines and we went through all of the various aspects of her tests and what I would recommend over the next couple of weeks and he voiced agreement and understanding. Discharge Plan Discharge Plan Patient Disposition: Home Provider Discharge Comment: Stable for discharge home with symptomatic treatment. Discharge orders & Medications Prescriptions: New nodjpsohij-pscxkdmqcmwnj-xiyz 50-325-40 mg Tablet 1 tab PO Q4HR PRN (Reason: Headache) Qty: 15 0RF lorazepam [Ativan] 0.5 mg tablet 0.5 mg PO BID PRN (Reason: headache and nausea) Qty: 14 0RF ondansetron 4 mg tablet,disintegrating 4 mg PO Q8H PRN (Reason: nausea and vomiting) 4 Days Qty: 14 0RF Continued liothyronine 5 mcg tablet 5 mcg PO DAILY levothyroxine 88 mcg tablet 88 mcg PO DAILY progesterone micronized 200 mg capsule 200 mg PO BEDTIME Odactra 12 SQ-HDM tablet, sublingual 1 tab sublingual DAILY naltrexone 1.5 mg Capsule 2.5 mg PO BEDTIME Semaglutide/B12 0.34 ml SUBCUT WEEKLY Follow up/Referrals: Abad Trujillo MD [Primary Care Provider] - Diet/Activity/Treatments Diet: Regular Activity: As tolerated Visit Report/Discharge Packet Instructions: DI for Migraine Stand Alone Forms: Patient Portal/API Discharge Data Primary Care Provider: Abad Trujillo Attending Provider: Juan Figueroa Admit Date/Time: 01/11/25 10:48 Quality VTE Deep Vein Thrombosis/Pulmonary Embolism Present on Admission: No
--- NOTE | 2025-01-12 18:33 | PC.NURSE ---
Discharge instructions gone over with patient and patient's SO. All questions answered, patient stated understanding. PIV x2 and telemetry d/c'ed prior to discharge. Patient's home medications returned to patient from pharmacy. All belongings with patient. PCT Rosemarie escorted patient to exit.
== END 2025-01-12 18:35 | disposition home or self-care (01) ==
LOC: ED 01-11 08:05 → AC 01-11 10:49
PROVIDERS: Emergency Medicine; Hospitalist; Admitting Provider Internal Medicine; Emergency Provider Emergency Medicine; PCP Internal Medicine; Referring Provider Emergency Medicine; Visit Provider Internal Medicine
DX: G93.40 Encephalopathy, unspecified (principal); R53.1 Weakness; H53.149 Visual discomfort, unspecified; G43.809 Other migraine, not intractable, without status migrainosus; E03.9 Hypothyroidism, unspecified; Z11.52 Encounter for screening for COVID-19
CPT/HCPCS: 0241U; 36415; 62270; 70450; 71045; 80048; 80053; 80305; 80320; 81001; 82550; 82607; 82805; 82945; 83036; 83605; 83690; 83735; 83880; 84145; 84157; 84443; 84484; 85025; 85027; 85379; 85610; 85730; 87040; 87070; 87205; 87798; 89051; 93005; 96361; 96365; 96372; 96375; 96376; 97161; 97530; 99284; 99291; G0378; J0134; J0696; J1171; J1200; J1650; J1885; J2060; J2405; J2765; J3030

== ENCOUNTER → 2025-05-23 17:51 | Outpatient (CLI) | payer BC, SELFPAY ==
[2025-01-11 11:14] VITALS: BMI 28.1
--- NOTE | 2025-05-23 17:52 | DI.MG.S_ITS ---
MM screening mammo BI: 05/23/2025. BI-RADS: 1 CLINICAL: 49-year old female for bilateral screening mammogram. Tyrer-Cuzick lifetime risk of 8.6%. No personal or first-degree family history of breast cancer. Current reported family history of breast cancer: maternal aunt. PRIOR EXAMS: 06/26/23. MAMMOGRAPHY TECHNIQUE: 2D and 3D (tomosynthesis) digital mammographic views obtained, with additional images as needed for full coverage. Current study was also evaluated with a Computer Aided Detection (CAD) system. DENSITY C. The breasts are heterogeneously dense, which may obscure small masses. MAMMOGRAPHY FINDINGS Bilateral: No suspicious mass, asymmetry, microcalcification, or other abnormality seen. IMPRESSION: * No evidence of malignancy. RECOMMENDATIONS Bilateral * Annual screening mammography. OVERALL ASSESSMENT CATEGORY BI-RADS-1: Negative. The [employer] recommends annual screening mammography beginning at age 40 for women with average risk of breast cancer. ELECTRONICALLY SIGNED: Angel Amado M.D. on 05/24/2025 at 03:26:28 PM PT Interpreting Station ID: [id number]
== END ==
LOC: MAMMO 17:52
PROVIDERS: PCP Family Medicine; Referring Provider Family Medicine; Visit Provider Family Medicine
DX: Z12.31 Encounter for screening mammogram for malignant neoplasm of breast (principal); Z80.3 Family history of malignant neoplasm of breast; R92.333 Mammographic heterogeneous density, bilateral breasts
CPT/HCPCS: 77063; 77067

== ENCOUNTER 2025-09-30 09:04 | Emergency (ER) | payer BC, SELFPAY ==
[2025-07-26 08:22] VITALS: BMI 27.4
[2025-09-30] VITALS (10 sets, daily range): BP systolic 97–148; BP diastolic 52–66; PULSE 74–84; RESP 14–21; TEMP 36.7; O2SAT 98–100; BMI 27.4
[2025-09-30] MEDS: EPINEPHrine 1 MG/ML 0.3 MG IM (09:32)
[2025-09-30] MEDS: FAMOTIDINE 20 MG/2 ML VIAL IV (09:32)
[2025-09-30] MEDS: methylPREDNISolone succ 125 MG/2 ML VIAL IV (09:32)
[2025-09-30] MEDS: diphenhydrAMINE 50 MG/ML VIAL 25 MG IV (09:33)
[2025-09-30] MEDS: RACEPINEPHRINE 0.5 ML NEB INH (10:28)
--- NOTE | 2025-09-30 10:39 | RT ---
pt states she feels better, no distress noted or stridor heard. Pt on room air
[2025-09-30] MEDS: SODIUM CHLORIDE 0.9% 500 ML 1000 ML IV (10:51)
--- NOTE | 2025-09-30 21:08 | ED.ALLEREA ---
HPI - Allergic Reaction General Chief complaint: Allergic Reaction Stated complaint: sent from [facility], Having an allergic reaction Time Seen by Provider: 09/30/25 10:37 Source: patient Mode of arrival: Ambulatory History of Present Illness HPI narrative: This 49 yo female presents with the complaint of of burning in her chest and difficult breathing after taking cefdinir and cephalexin. No known allergy to Penicillin. the patient also had diffuse itchiness but no urticaria. Related Data Home Medications ?Medication ?Instructions ?Recorded ?Confirmed allergen 1 tab sublingual DAILY 01/11/25 07/26/25 xt,mite,D.farinae-D.pteronyssinus 12 SQ-HDM sublingual tablet (Odactra) levothyroxine 88 mcg tablet 88 mcg PO DAILY 01/11/25 07/26/25 liothyronine 5 mcg tablet 5 mcg PO DAILY 01/11/25 07/26/25 naltrexone 1.5 mg capsule 2.5 mg PO BEDTIME 01/11/25 07/26/25 progesterone micronized 200 mg 200 mg PO BEDTIME 01/11/25 07/26/25 capsule SEMAGLUTIDE/B12 0.2 mg SUBCUT WEEKLY 07/26/25 07/26/25 cetirizine 10 mg tablet (24Hour 10 mg PO DAILY 07/26/25 07/26/25 Allergy) Previous Rx's ?Medication ?Instructions ?Recorded phenazopyridine 100 mg tablet 100 mg PO TID PRN pain 5 doses #5 07/23/25 (Pyridium) tabs cefdinir 300 mg capsule 300 mg PO BID #30 caps 07/28/25 diphenhydramine HCl 25 mg capsule 25 mg PO TID PRN allergy symptoms 09/30/25 (Benadryl) #20 caps famotidine 20 mg tablet (Pepcid) 20 mg PO BID 5 days #10 tabs 09/30/25 prednisone 10 mg tablet 10 mg PO DAILY #21 tabs 09/30/25 Allergies Allergy/AdvReac Type Severity Reaction Status Date / Time piperacillin (From Zosyn) Allergy Mild Rash Verified 09/30/25 09:19 tazobactam (From Zosyn) Allergy Mild Rash Verified 09/30/25 09:19 ciprofloxacin (From Cipro) Allergy Unknown Verified 09/30/25 09:19 lidocaine Allergy Unknown Verified 09/30/25 09:19 morphine Allergy Unknown Verified 09/30/25 09:19 pregabalin (From Lyrica) Allergy Unknown Verified 09/30/25 09:19 Review of Systems Review of Systems ROS Unobtainable: All systems reviewed & are unremarkable except as noted in HPI and below Constitutional Comments: Malaise secondary to diffuse itchiness and burning in lungs and difficult breathing after taking cefdinir and cephalexin. Had some nausea as well. Cardiovascular Cardiovascular: Reports system reviewed and no additional complaints, except as documented Respiratory Comments: burning in lungs and difficult breathing like tight. Gastrointestinal Comments: nausea Musculoskeletal Comments: Diffuse itchiness. Neurologic Neurologic: Reports system reviewed and no additional complaints, except as documented Patient History Medical History (Updated 09/30/25 @ 11:35 by Neisha Combs MD) Recurrent UTI Hypothyroidism Social History household members: spouse alcohol intake: current Smoking Status: Never smoker Exam Initial Vital Signs Initial Vital Signs: Vital Signs Temperature 98.1 F 09/30/25 09:18 Pulse Rate 74 09/30/25 09:18 Respiratory Rate 16 09/30/25 09:18 Blood Pressure 148/66 H 09/30/25 09:18 Pulse Oximetry 99 09/30/25 09:18 Oxygen Delivery Method Room Air 09/30/25 09:18 Const Other: Patient lays with eyes closed in apparent discomfort HENMT HENMT Other: No facial edema or lip swelling Neck Other: NROM, no stridor Resp Other: no overt wheezing but slightly splinted BS bilaterally. GI Other: Nontender, adequate BS Extrem Other: no urticaria but scratching Course Orders Ordered: Discontinued Medications Diphenhydramine HCl (Diphenhydramine 50 Mg/Ml Vial) 25 mg IV NOW ONE Stop: 09/30/25 09:22 Last Admin: 09/30/25 09:33 Dose: 25 mg Documented By: MONROE Epinephrine (Racepinephrine 0.5 Ml Neb) 0.5 ml INH NOW ONE Stop: 09/30/25 10:22 Last Admin: 09/30/25 10:28 Dose: 0.5 ml Documented By: JULIA Epinephrine HCl (Epinephrine 1 Mg/Ml) 0.3 mg IM NOW ONE Stop: 09/30/25 09:22 Last Admin: 09/30/25 09:32 Dose: 0.3 mg Documented By: SBF Famotidine (Famotidine 20 Mg/2 Ml Vial) 20 mg IV NOW FANTA Last Admin: 09/30/25 09:32 Dose: 20 mg Documented By: SBF Sodium Chloride (Normal Saline 0.9%) 500 mls @ 1,000 mls/hr IV BOLUS ONE Stop: 09/30/25 11:07 Last Infusion: 09/30/25 12:26 Dose: Infused Documented By: Admin: 09/30/25 10:51 Dose: 1,000 mls/hr Documented By: SBF Methylprednisolone (Methylprednisolone Succ 125 Mg/2 Ml Vial) 125 mg IV NOW ONE Stop: 09/30/25 09:22 Last Admin: 09/30/25 09:32 Dose: 125 mg Documented By: STEVENF MDM - Allergic Reaction Differential Diagnosis Differential diagnosis: Likely anaphylaxis, allergic reaction and angioedema MDM Narrative Medical decision making narrative: This 49 yo female with acute onset of bilateral lung burning sensation and fdifficult breathing after taking cefdinir and then cephalexin . Was felt to be anaphylaxis and given Epinephrine and then Benadryl IM and Solu Medrol IM . Did not immediately get better as epinephrine made heart race and breathing felt tighter. subsequently used racemic epi per neb with better results. Hydrated with liter of NS and felt better and sent home on prednisone taper for 10 days and Benadryl prn. No cephalosporins in future . Follow-up after weekend or return to ER next 24 hours if worse. . Discharge Plan Departure Patient Disposition: Home Clinical Impression: Anaphylaxis Instructions: DI for Anaphylaxis Prescriptions: New diphenhydramine HCl [Benadryl] 25 mg capsule 25 mg PO TID PRN (Reason: allergy symptoms) Qty: 20 0RF prednisone 10 mg tablet 10 mg PO DAILY Qty: 21 0RF Rx Instructions: Ignore above dosing and dispense as follows: Day 1, 2 4 tabs daily then Days 3,4 3 tabs daily, then Days 5,6 2 tabs daily then Days 7,8 ! tabd daily then Days 9,10 1/2 tab daily then stop famotidine [Pepcid] 20 mg tablet 20 mg PO BID 5 Days Qty: 10 0RF No Action liothyronine 5 mcg tablet 5 mcg PO DAILY levothyroxine 88 mcg tablet 88 mcg PO DAILY progesterone micronized 200 mg capsule 200 mg PO BEDTIME Odactra 12 SQ-HDM tablet, sublingual 1 tab sublingual DAILY naltrexone 1.5 mg Capsule 2.5 mg PO BEDTIME phenazopyridine [Pyridium] 100 mg tablet 100 mg PO TID PRN (Reason: pain) Qty: 5 0RF cetirizine [24Hour Allergy] 10 mg tablet 10 mg PO DAILY SEMAGLUTIDE/B12 0.2 mg SUBCUT WEEKLY cefdinir 300 mg capsule 300 mg PO BID Qty: 30 0RF Referrals: Ashley Sherwood MD [Primary Care Provider, Family Practice] Referral Note: Follow up 5 days Clinical Impression: Anaphylaxis Stand Alone Forms: Patient Portal/API
== END 2025-09-30 12:34 | disposition home or self-care (01) ==
PROVIDERS: Emergency Provider Emergency Medicine; PCP Family Medicine
DX: T88.6XXA Anaphylactic reaction due to adverse effect of correct drug or medicament properly administered, initial encounter (principal)
CPT/HCPCS: 94640; 96361; 96372; 96374; 96375; 99284; J0165; J1200; J2919; J7040